=== PATIENT | male | born 1975 | race Caucasian/White ===

== ENCOUNTER 2022-04-08 05:57 | Day surgery (SDC) | payer OTHER ==
[2022-04-07 08:57] VITALS: BMI 27.7
--- NOTE | 2022-04-07 13:28 | P.HPOR ---
History of Present Illness H&P Date: 04/07/22 Chief Complaint: Left middle finger PIP fracture dislocation Subjective: This is a 46 year old male that presents today for follow up evaluation regarding a left middle finger injury that occurred on 03/20/22. He tripped on sidewalk in the hard and thought he jammed his finger. He went to urgent care on 03/22/22 where x-rays were taken showing a left middle finger PIP joint fracture dislocation. He states they attempted reduction without anesthetic but noticed no difference in the appearance of the digit after attempted reduction and states he was then told to schedule further outpatient follow up with a specialist. He was seen last week in office and closed reduction with concentric anatomic reduction was able to be achieved and he was placed in a dorsal blocking splint. He noticed 3 days prior that he attempted to lift a trash can with this finger and felt it pop back out. Physical Examination: LUE: AIN/PIN/Radial/Ulnar/Median motor intact. Radial/Ulnar/Median SILT. 2+/4 Radial/Ulnar pulses palpated. 5/5 APB, 5/5 FDI. Left middle finger held in extension, swelling, TTP and bruising around PIP joint. Imaging: X-Rays of the left middle finger demonstrate a intra-articular middle phalanx fracture involving 30-40% of the volar articular surface with dorsal dislocation present. New post reduction x-rays reveal continued dorsal subluxation/dislocation of the PIP joint, confirming fracture instability. Impression: 1.) Left middle finger intra-articular middle phalanx base fracture with PIP dislocation, unstable. Plan: Diagnosis and treatment options were discussed with the patient. Due to loss off reduction on close radiographic follow up films obtained today indicating joint instability I recommend surgical intervention. We discussed possibility of left middle finger intra-articular middle phalanx base fracture ORIF vs possible hemihamate arthroplasty for his unstable fracture pattern. Risks and benefits of surgery including bleeding, infection, damage to surrounding tissue, need for further surgery, residual numbness, need for therapy post operatively were discussed and the patient wished to go forward with surgery. The patient was agreeable with this plan. Follow up: Surgery -Edd Hopkins DO Orthopedic Hand/Upper Extremity Surgeon Past Medical History Past Medical History: No Reported History History of Any Multi-Drug Resistant Organisms: None Reported Additional Past Surgical History / Comment(s): CYST REMOVED FROM CHEST AREA, COLONOSCOPY Past Anesthesia/Blood Transfusion Reactions: No Reported Reaction Smoking Status: Former smoker - Past Family History Mother Family Medical History: No Reported History Medications and Allergies Home Medications Medication Instructions Recorded Confirmed Type Ibuprofen [Advil] 200 mg PO Q6HR PRN 04/07/22 04/07/22 History Allergies Allergy/AdvReac Type Severity Reaction Status Date / Time No Known Allergies Allergy Verified 04/07/22 08:28 Physical Examination Osteopathic Statement: *. No significant issues noted on an osteopathic structural exam other than those noted in the History and Physical/Consult.
[~2022-04-08 05:57] MED LIST: DEXAMETHASONE SOD PHOSPHATE 4 MG/ML 1 ML VIAL IV ONE; LACTATED RINGERS 1,000 ML IV SCH; MIDAZOLAM 2 MG/2 ML VIAL IV PRN; ONDANSETRON 4 MG/2 ML VIAL IVP ONE; SCOPOLAMINE 1 MG/72 HR PATCH TRANSDERM ONE
[2022-04-08] MEDS ORDERED: LACTATED RINGERS 1,000 ML IV ONE ×3 (06:26→10:15)
[2022-04-08] MEDS ORDERED: ONDANSETRON 4 MG/2 ML VIAL ONE (06:31)
[2022-04-08] MEDS ORDERED: DEXAMETHASONE SOD PHOSPHATE 4 MG/ML 1 ML VIAL IVP ONE (06:35)
[2022-04-08] MEDS ORDERED: SUCCINYLCHOLINE CHLORIDE 200 MG/10 ML VIAL IV ONE (06:55)
[2022-04-08] MEDS ORDERED: PROPOFOL 10 MG/ML 20 ML VIAL IV ONE (06:55)
[2022-04-08] MEDS ORDERED: fentaNYL (PF) 50 MCG/ML 2 ML AMP ONE (06:55)
[2022-04-08] MEDS ORDERED: KETAMINE 10 MG/ML 20 ML VIAL ONE (06:55)
[2022-04-08] MEDS ORDERED: ROCURONIUM 10 MG/ML (5 ML VIAL) IV ONE (06:55)
[2022-04-08] MEDS ORDERED: MIDAZOLAM 2 MG/2 ML VIAL ONE (06:55)
[2022-04-08] MEDS ORDERED: HYDROmorphone (PF) 1 MG/ML ONE (06:55)
[2022-04-08] MEDS ORDERED: LIDOCAINE 2% INJ 20 MG/ML (2 ML VIAL) ONE (06:55)
[2022-04-08 06:59] VITALS: RESP 16
[2022-04-08] MEDS ORDERED: HYDROmorphone 0.5 MG/0.5 ML SYRINGE IVP PRN (07:00)
[2022-04-08] MEDS ORDERED: BUPIVACAINE (PF) 0.5% 30 ML VIAL SQ ONE ×2 (07:22→10:08)
[2022-04-08 10:46] VITALS: TEMP 97
[2022-04-08 11:14] VITALS: BP 120/75; PULSE 81
--- NOTE | 2022-04-08 12:47 | P.OP ---
Date of Procedure: 04/08/22 Preoperative Diagnosis: 1.) Left middle finger intra-articular middle phalanx base fracture with PIP dislocation, unstable, subacute. Postoperative Diagnosis: 1.) Left middle finger intra-articular middle phalanx base fracture with PIP dislocation, unstable, subacute. Procedure(s) Performed: 1.) Left middle finger open reduction of PIP joint dislocation (04190) 2.) Left middle finger middle phalanx Hemihamate arthroplasty for unstable intra-articular middle phalanx base fracture -Corrective osteotomy for bony contouring at the base fo the middle phalanx (96022) -Trosper of bone graft from left Hamate bone (48317) -Open fixation and stabilization of Hamate bone graft to middle phalanx base (86271) Implants: 1.) Arthrex 1.4mm cortical screw x2(12mm) 2.) Arthrex 1.0mm cortical screw x1 (11mm) Anesthesia: GIOA Surgeon: Edd Hopkins Estimated Blood Loss (ml): 30 Pathology: none sent Condition: stable Disposition: PACU Description of Procedure: This is a 46 year old male who sustained a left middle finger comminuted intra-a rticular middle phalanx base fracture/dislocation on 03/20/22 after tripping on [facility]. He initially presented to my office over 1 week out from his injury with his left middle finger PIP joint still dislocated. Closed reduction was performed at that time successfully and splint was placed. He presented for close radiographic follow up 1 week later and was found to have re-dislocated. [facility] of his unstable, subacute left middle finger PIP fracture/dislocation . Risks and benefits of surgery were discussed with the patient including bleeding, damage to surrounding tissue, infection, need for further surgery, stiffness, hardware irritation, need for hand therapy post operatively as well as risks of anesthesia including pulmonary embolism and even and the patient wished to proceed with surgical intervention. The patient was seen in the pre-operative area by myself. Consent and H&P were completed and updated. The correct extremity was marked in the pre- operative area by myself and all other questions were answered. Operative Narrative: The patient was brought to the operating room by the department of anesthesia . They remained on the portable stretcher and a rolling hand table was brought to the side of the operative extremity. Pre-operative time out was performed indicating the correct patient, procedure and laterality. All in the room agreed. Pre-operative antibiotics were given prior to skin incision. The patient was then drifted off to sleep by the department of anesthesia. A nonsterile tourniquet was then applied to the operative extremity and the left upper extremity was then prepped and draped in normal sterile fashion. The operative extremity was the exsanguinated with an esmarch bandage and the tourniquet was inflated to 250mmHg. 15 blade scalpel was utilized to make a trapezoidal incision centered over the PIP joint of the left middle finger with proximal and distal Thom extensions, while placing the horizontal portion of the incision along the mid axial line. The dissection was then taken superficial to the neurovascular bundles and the flap was then elevated in a radial direction. The dissection was then taken down to the flexor tendon sheath. Neurovascular bundles were then elevated off the flexor tendon sheath. A flap of the flexor tendon sheath was then elevated in between A2 and A4 pulleys consisting of the A3 beba in an ulnar to radial based direction. This flap was preserved and was utilized later to protect the graft. The interval between the collateral ligaments and the volar plate were incised with a 15 blade scalpel on both the radial and ulnar aspects. The proximal origin of the volar plate was left intact and the volar plate was then released from its distal insertion in a transverse fashion. A 15 blade scalpel was then used to subperiosteally elevate the origins of the collateral ligaments on both the radial and ulnar sides. The PIP joint was then able to be shotgunned open by hyperextending the PIP joint after venting the proximal portion of the A4 beba. Upon visualization of the base of the middle phalanx, a comminuted impacted intra-articular fracture involving roughly 60% of the volar articular surface was identified. There was extensive impaction and comminution of the articular fragment, this was not amenable to internal fixation. Therefore, decision to proceed with manuel-hamate reconstruction was made. A microsagittal saw was utilized to create the bed for the graft of the middle phalanx and was prepared in a slightly oblique/volar direction, but transverse to the axis of the middle phalanx articular surface. A step cut was created distally in order to hold the graft in place. Ronguer was utilized to remove comminuted and impacted bone fragments. Attention was then drawn to the base of the fourth and fifth metacarpals. 15 blade scalpel was utilized to make a longitudinal incision after needle localization of the fourth and fifth CMC joints. Subcutaneous dissection was performed between the small and ring finger extensor tendons, taking care to protect the sensory branches of the dorsal ulnar sensory nerve. The dorsal capsule was then subperiosteally elevated to reveal the fourth and fifth CMC joint. Previously, taken measurements from the bed defect were then drawn on th e dorsal aspect of the hamate measuring 12 mm in width and 7 mm in the AP direction. Microsagittal saw was then used to make the radial and ulnar cuts approximately 7 mm deep into the articular surface. The transverse portion of the graft was then cut and an additional wedge cut was placed proximally to avoid dislodging the graft upon extraction. The dorsal surfaces of the fourth and fifth metacarpal bases were then removed with microsagittal saw in order to gain appropriate angle for the osteotome to extract the graft. Osteotome was then impacted into the articular surface and the graft was taken without complication. Irrigation was then performed at the fourth and fifth CMC joints and then subcutaneous closure was performed with 4-0 Monocryl suture followed by 4-0 nylon suture. The fourth and fifth CMC joints were then stressed with axial loading and flexion and were deemed to be stable under live fluoroscopy. Attention was then drawn back to the shotgunned PIP joint. The extracted Hamate graft was placed into the newly created bed of the volar surface of the middle phalanx and it was found to be oversized. Several touch-up cuts were then performed until a flush fit was appreciated and the recreation of the articular curvature was achieved. After appropriate sizing, the graft was then held in place by a 0.28 K wire centrally. Recreation of the articular curve was ap preciated on X-ray. Drilling for a 1.4mm lag screw was then performed on both the radial and ulnar sides of the k-wire. Depth gauge was utilized to determine screw lengths. Size 13mm was initially measured. However, after insertion it was felt that ulnar screw size 13 appeared too long on x-ray and it was exchange for a size 12 length. Size 12 was inserted for the radial screw. After screw inserti on was performed. The microsaggital saw was utilized to make an additional touch up cut to contour the volar graft to the volar aspect of the middle phalanx. The central 0.028 K wire was then removed and overdrill was performed and a size 11 1.0mm screw was placed. With 3 screws inserted the joint was then reduced and ranged. 90 degrees of PIP joint flexion was able to be passively obtained and th e graft was stable under live fluoroscopy and appeared to be appropriately sized and contoured. At this time the tourniquet was let down at 2 hours. The finger had immediate perfusion. Bovie cautery was utilized for hemostasis. Irrigation was performed. The previously elevated flexor tendon sheath flap was passed deep to the flexor tendons and elevated volar plate and sutured back down to the ulna r leaflet with 4-0 Monocryl suture creating a smooth gliding surface for the flexor tendons. Volar plate was then repaired and sutured to the intact collateral ligaments on the radial and ulnar portions of the middle phalanx base with 4-0 Monocryl suture. The finger was then ranged and no swan neck deformity was present. 12cc's of 0.5% bupivicaine was utilized to perform a digital block to the left middle finger and a local block around the harvest site. Skin closure was then performed with several interrupted 4-0 nylon sutures. Sterile dressing was applied with adaptic, 4x4s, cast padding and a dorsal blocking splint. The patient was then woken by the department of anesthesia and transferred to PACU in stable condition. Edd Hopkins DO Orthopedic Hand/Upper Extremity Surgeon
== END 2022-04-08 11:35 | disposition home or self-care (01) ==
LOC: OR 05:57
PROVIDERS: ATTEND Orthopaedic Surgery Hand Surgery
DX: S62.623A Displaced fracture of middle phalanx of left middle finger, initial encounter for closed fracture (principal); W01.0XXA Fall on same level from slipping, tripping and stumbling without subsequent striking against object, initial encounter; Y92.480 Sidewalk as the place of occurrence of the external cause; Z87.891 Personal history of nicotine dependence
CPT/HCPCS: 26785; 26567; 26746; 20900; C1713; J2250; J0330; J1100; J0690; J2405; J3010; J1170; J2704; J2001

== ENCOUNTER 2023-01-03 06:45 | Emergency (ER) | payer OTHER ==
[2023-01-03] MEDS ORDERED: ONDANSETRON 4 MG/2 ML VIAL IVP STA (07:03)
[2023-01-03] MEDS ORDERED: SODIUM CHLORIDE 0.9% 2,000 ML IV STA (07:03)
[2023-01-03] MEDS ORDERED: KETOROLAC 15 MG/ML 1 ML VIAL IVP STA ×2 (07:03→07:21)
[2023-01-03] MEDS ORDERED: HYDROmorphone 0.5 MG/0.5 ML SYRINGE IVP STA ×2 (07:04→07:21)
[2023-01-03 07:28] LABS: Basophils # (A) 0.1 k/uL (0-0.2); Basophils % (A) 0 %; Eosinophils # (A) 0.3 k/uL (0-0.7); Eosinophils % (A) 2 %; HCT 50.4 % (39.0-53.0); HGB 18.2 gm/dL (13.0-17.5); Lymphocytes # (A) 4.1 k/uL (1.0-4.8); Lymphocytes % (A) 27 %; MCH 34.2 pg (25.0-35.0); Mean Platelet Volume 8.5; Monocytes # (A) 0.6 k/uL (0-1.0); Monocytes % (A) 4 %; Neutrophils # (A) 9.6 k/uL (1.3-7.7); Neutrophils % (A) 65 %; Platelet Count 327 k/uL (150-450); RBC 5.31 m/uL (4.30-5.90); RDW 14.1 % (11.5-15.5); WBC 14.8 k/uL (3.8-10.6)
--- NOTE | 2023-01-03 07:38 | ED ---
General Adult HPI - General Chief complaint: Back Pain/Injury Stated complaint: Urinating blood, ABD Pain Time Seen by Provider: 01/03/23 06:57 Source: patient, RN notes reviewed Mode of arrival: ambulatory Limitations: no limitations - History of Present Illness Initial comments: This a 47-year-old male presents emergency department went right flank pain. Patient states pain was sudden onset. Patient states she acute urinating blood. Patient is very nauseous had several episodes of vomiting. He states nothing makes the pain feel better or worse. Denies any prior abdominal surgeries no prior history kidney stones. Patient has NO KNOWN DRUG ALLERGIES. Denies any fevers. Patient has no complaints chest pain, upper back pain. - Related Data Home Medications Medication Instructions Recorded Confirmed Ibuprofen [Advil] 200 mg PO Q6HR PRN 04/07/22 04/07/22 Previous Rx's Medication Instructions Recorded HYDROcodone/APAP 5-325MG [[place] 1 tab PO Q6HR PRN 3 Days #18 tab 04/08/22 5-325] HYDROcodone/APAP 7.5-325MG [[place] 1 tab PO Q6HR PRN 3 Days #12 tab 01/03/23 7.5-325] Ketorolac [Toradol] 10 mg PO Q8HR #15 tab 01/03/23 Ondansetron Odt [Zofran Odt] 4 mg PO Q8HR PRN #10 tab 01/03/23 Sulfamethox-Tmp 800-160Mg [Bactrim 1 each PO Q12HR #14 tab 01/03/23 Ds] Tamsulosin [Flomax] 0.4 mg PO DAILY #7 cap 01/03/23 Allergies Allergy/AdvReac Type Severity Reaction Status Date / Time No Known Allergies Allergy Verified 01/03/23 06:57 Review of Systems ROS Statement: Those systems with pertinent positive or pertinent negative responses have been documented in the HPI. ROS Other: All systems not noted in ROS Statement are negative. Past Medical History Past Medical History: No Reported History History of Any Multi-Drug Resistant Organisms: None Reported Additional Past Surgical History / Comment(s): CYST REMOVED FROM CHEST AREA, COLONOSCOPY Past Anesthesia/Blood Transfusion Reactions: No Reported Reaction Past Psychological History: No Psychological Hx Reported Smoking Status: Former smoker Past Alcohol Use History: Daily Past Drug Use History: Marijuana - Past Family History Mother Family Medical History: No Reported History General Exam Limitations: no limitations General appearance: alert, in no apparent distress Head exam: Present: atraumatic, normocephalic, normal inspection Eye exam: Present: normal appearance, PERRL, EOMI. Absent: scleral icterus, conjunctival injection, periorbital swelling ENT exam: Present: normal exam, normal oropharynx, mucous membranes moist Neck exam: Present: normal inspection, full ROM. Absent: tenderness, meningismus, lymphadenopathy Respiratory exam: Present: normal lung sounds bilaterally. Absent: respiratory distress, wheezes, rales, rhonchi, stridor Cardiovascular Exam: Present: regular rate, normal rhythm, normal heart sounds. Absent: systolic murmur, diastolic murmur, rubs, gallop, clicks GI/Abdominal exam: Present: soft, tenderness, normal bowel sounds. Absent: distended, guarding, rebound, rigid Back exam: Present: CVA tenderness (R). Absent: CVA tenderness (L) Neurological exam: Present: alert, oriented X3 Skin exam: Present: warm, dry, intact, normal color. Absent: rash Course Vital Signs 01/03/23 01/03/23 01/03/23 06:52 06:57 07:42 Temperature 97.9 F Pulse Rate 63 64 50 L Respiratory 18 16 20 Rate Blood Pressure 162/79 165/100 152/95 O2 Sat by Pulse 99 100 100 Oximetry 01/03/23 01/03/23 01/03/23 08:56 10:00 11:37 Temperature 98 F Pulse Rate 65 57 L 60 Respiratory 22 24 18 Rate Blood Pressure 169/99 153/103 152/103 O2 Sat by Pulse 99 98 100 Oximetry Medical Decision Making - Medical Decision Making Was pt. sent in by a medical professional or institution (, PA, MACHINERY ERECTOR, urgent care, hospital, or jail...) When possible be specific @ -No Did you speak to anyone other than the patient for history (EMS, parent, family, police, friend...)? What history was obtained from this source @ -No Did you review nursing and triage notes (agree or disagree)? Why? @ -I reviewed and agree with nursing and triage notes Were old charts reviewed (outside hosp., previous admission, EMS record, old EKG, old radiological studies, urgent care reports/EKG's, jail records)? Report findings @ -No old charts were reviewed Differential Diagnosis (chest pain, altered mental status, abdominal pain women, abdominal pain men, vaginal bleeding, weakness, fever, dyspnea, syncope, headache, dizziness, GI bleed, back pain, seizure, CVA, palpatations, mental health, musculoskeletal)? @ -Differential Back Pain: Strain, zoster, cauda equina syndrome, epidural abscess, vertebral osteomyelitis, discitis, fracture, subluxation, disc herniation, DJD, spinal stenosis, dissection, AAA, pancreatitis, peptic ulcer disease, pyelonephritis, kidney stone, this is not meant to be an all-inclusive list. EKG interpreted by me (3pts min.). @ -None X-rays interpreted by me (1pt min.). @ -None done CT interpreted by me (1pt min.). @ -CT shows evidence of hydroureter, hydronephrosis on the right U/S interpreted by me (1pt. min.). @ -None done What testing was considered but not performed or refused? (CT, X-rays, U/S, labs)? Why? @ -None What meds were considered but not given or refused? Why? @ -None Did you discuss the management of the patient with other professionals (professionals i.e. , PA, MACHINERY ERECTOR, lab, RT, psych nurse, drug abuse social worker, mattress finisher, teacher, benefits officer, continuous pillowcase cutter)? Give summary @ -No Was smoking cessation discussed for >3mins.? @ -No Was critical care preformed (if so, how long)? @ -No Were there social determinants of health that impacted care today? How? (Homel essness, low income, unemployed, alcoholism, drug addiction, transportation, low edu. Level, literacy, decrease access to med. care, senior care, rehab)? @ -No Was there de-escalation of care discussed even if they declined (Discuss DNR or withdrawal of care, Hospice)? DNR status @ -No What co-morbidities impacted this encounter? (DM, HTN, Smoking, COPD, CAD, Cancer, CVA, ARF, Chemo, Hep., AIDS, mental health diagnosis, sleep apnea, morbid obesity)? @ -None Was patient admitted / discharged? Hospital course, mention meds given and route, prescriptions, significant lab abnormalities, going to OR and other pertinent info. @ -Discharge patient feels improved dietary pain is, IV fluids and antiemetics. CT shows evidence of hydronephrosis on the right consistent with kidney stone. Patient did have moderate amount of bacteria patient was given antibiotics patient pain is improved be discharged with oral pain medical. Undiagnosed new problem with uncertain prognosis? @ -No Drug Therapy requiring intensive monitoring for toxicity (Heparin, Nitro, Insulin, Cardizem)? @ -No Were any procedures done? @ -No Diagnosis/symptom? @ -Right flank pain, kidney stone Acute, or Chronic, or Acute on Chronic? @ -Acute Uncomplicated (without systemic symptoms) or Complicated (systemic symptoms)? @ -Uncomplicated Side effects of treatment? @ -No Exacerbation, Progression, or Severe Exacerbation? @ -No Poses a threat to life or bodily function? How? (Chest pain, [place], [place], pneumonia, PE, COPD, DKA, ARF, appy, cholecystitis, CVA, Diverticulitis, Homicidal, Suicidal, threat to staff... and all critical care pts) @ -No - Lab Data Result diagrams: 01/03/23 07:12 01/03/23 07:12 Lab Results 01/03/23 01/03/23 01/03/23 Range/Units 07:12 07:12 08:56 WBC 14.8 H (3.8-10.6) k/uL RBC 5.31 (4.30-5.90) m/uL Hgb 18.2 H (13.0-17.5) gm/dL Hct 50.4 (39.0-53.0) % MCV 95.0 (80.0-100.0) fL MCH 34.2 (25.0-35.0) pg MCHC 36.0 (31.0-37.0) g/dL RDW 14.1 (11.5-15.5) % Plt Count 327 (150-450) k/uL MPV 8.5 Neutrophils % 65 % Lymphocytes % 27 % Monocytes % 4 % Eosinophils % 2 % Basophils % 0 % Neutrophils # 9.6 H (1.3-7.7) k/uL Lymphocytes # 4.1 (1.0-4.8) k/uL Monocytes # 0.6 (0-1.0) k/uL Eosinophils # 0.3 (0-0.7) k/uL Basophils # 0.1 (0-0.2) k/uL Sodium 138 (137-145) mmol/L Potassium 3.8 (3.5-5.1) mmol/L Chloride 102 (98-107) mmol/L Carbon Dioxide 22 (22-30) mmol/L Anion Gap 14 mmol/L BUN 13 (9-20) mg/dL Creatinine 1.06 (0.66-1.25) mg/dL Est GFR (CKD-EPI)AfAm >90 (>60 ml/min/1.73 sqM) Est GFR (CKD-EPI)NonAf 83 (>60 ml/min/1.73 sqM) Glucose 172 H (74-99) mg/dL Calcium 9.8 (8.4-10.2) mg/dL Total Bilirubin 1.2 (0.2-1.3) mg/dL AST 68 H (17-59) U/L ALT 57 H (4-49) U/L Alkaline Phosphatase 157 H (38-126) U/L Total Protein 7.8 (6.3-8.2) g/dL Albumin 4.4 (3.5-5.0) g/dL Lipase 63 (23-300) U/L Urine Color Dark Brown Urine Appearance Turbid (Clear) Urine pH 5.5 (5.0-8.0) Ur Specific [place] 1.034 (1.001-1.035) Urine Protein 2+ H (Negative) Urine Glucose (UA) Trace H (Negative) Urine Ketones 3+ H (Negative) Urine Blood Large H (Negative) Urine Nitrite Negative (Negative) Urine Bilirubin Negative (Negative) Urine Urobilinogen 2.0 (<2.0) mg/dL Ur Leukocyte Esterase Moderate H (Negative) Urine RBC 151 H (0-5) /hpf Urine WBC 85 H (0-5) /hpf Ur Squamous Epith Cells 2 (0-4) /hpf Calcium Oxalate Crystal Occasional H (None) /hpf Urine Bacteria Rare H (None) /hpf Urine Mucus Many H (None) /hpf Disposition Clinical Impression: Kidney stone on right side Disposition: HOME SELF-CARE Condition: Stable Instructions (If sedation given, give patient instructions): Kidney Stones (ED) Additional Instructions: Please return to the Emergency Department if symptoms worsen or any other concerns. Prescriptions: Sulfamethox-Tmp 800-160Mg [Bactrim Ds] 1 each PO Q12HR #14 tab Tamsulosin [Flomax] 0.4 mg PO DAILY #7 cap HYDROcodone/APAP 7.5-325MG [[place] 7.5-325] 1 tab PO Q6HR PRN 3 Days #12 tab PRN Reason: pain Ketorolac [Toradol] 10 mg PO Q8HR #15 tab Ondansetron Odt [Zofran Odt] 4 mg PO Q8HR PRN #10 tab PRN Reason: Nausea Is patient prescribed a controlled substance at d/c from ED?: Yes When asked, does pt state using other controlled substances?: No If prescribed controlled substance>3 days was MAPS reviewed?: Prescribed <3 Days If opioid is for acute pain is fill amount 7 days or less?: Yes If Rx opioid, was Start Talking consent form obtained?: Yes Referrals: None,Stated [Primary Care Provider] - 1-2 days Colton Diaz MD [STAFF PHYSICIAN] - 1-2 days Time of Disposition: 11:12
[2023-01-03 07:40] LABS: ALT 57 U/L (4-49); AST 68 U/L (17-59); African American GFR (CKD) >90 (>60 ml/min/1.73 sqM); Albumin 4.4 g/dL (3.5-5.0); Alkaline Phosphatase 157 U/L (38-126); Anion Gap 14 mmol/L; Blood Urea Nitrogen 13 mg/dL (9-20); Calcium 9.8 mg/dL (8.4-10.2); Carbon Dioxide 22 mmol/L (22-30); Chloride 102 mmol/L (98-107); Glucose 172 mg/dL (74-99); Lipase 63 U/L (23-300); Non-African American GFR(CKD) 83 (>60 ml/min/1.73 sqM); Sodium 138 mmol/L (137-145); Total Bilirubin 1.2 mg/dL (0.2-1.3); Total Protein 7.8 g/dL (6.3-8.2)
[2023-01-03 08:00] LABS: Potassium 3.8 mmol/L (3.5-5.1)
--- NOTE | 2023-01-03 08:11 | CT ---
EXAMINATION TYPE: CT abdomen pelvis wo con CT DLP: 734.9 mGycm, Automated exposure control for dose reduction was used. DATE OF EXAM: 01/03/2023 8:02 AM COMPARISON: None CLINICAL INDICATION:Male, 47 years old with history of flank pain; Flank pain TECHNIQUE: Axial CT of the abdomen and pelvis. Sagittal and coronal reformats were created on a [employer] workstation. Contrast used: mL of , (none if empty) Oral contrast used: without Oral Contrast (none if empty) FINDINGS: LOWER CHEST: Unremarkable ABDOMEN LIVER: Diffusely hypoattenuating parenchyma. GALLBLADDER AND BILE DUCTS: Unremarkable. PANCREAS: Unremarkable. SPLEEN: Unremarkable. ADRENAL GLANDS: Unremarkable. KIDNEYS AND URETERS: Mild right hydronephrosis without evidence for obstructing calculus. No left ysabel al calculi. No right renal calculi. PELVIS BLADDER: Unremarkable REPRODUCTIVE: Unremarkable. ABDOMEN & PELVIS STOMACH AND BOWEL: Small hiatal hernia, duodenum is unremarkable No evidence of bowel obstruction. Th e appendix is normal. PERITONEUM/RETROPERITONEUM: No evidence of pneumoperitoneum or free fluid. VASCULATURE: No evidence of aortic aneurysm. MUSCULOSKELETAL: No acute osseous abnormalities LYMPH NODES: No gross evidence for lymphadenopathy. SOFT TISSUE/ABDOMINAL WALL: Fat-containing buccal hernia. IMPRESSION: 1. Mild right hydronephrosis without evidence for obstructing calculus. Correlate for recently passe d stone. No nephrolithiasis visualized. 2. Small hiatal hernia.
[2023-01-03 09:33] LABS: Appearance,Urine Turbid (Clear); Bacteria,Urine Rare /hpf; Bilirubin,Urine Negative (Negative); Blood,Urine Large (Negative); Calcium Oxalate Crystals,Urine Occasional /hpf; Color,Urine Dark Brown; Glucose,Urine (UA) Trace (Negative); Ketones,Urine 3+ (Negative); Leukocyte Esterase,Urine Moderate (Negative); Mucus,Urine Many /hpf; Nitrite,Urine Negative (Negative); PH, Urine 5.5 (5.0-8.0); Protein,Urine 2+ (Negative); RBC,Urine 151 /hpf (0-5); Specific Gravity,Urine 1.034 (1.001-1.035); Squamous Epithelial Cell,Urine 2 /hpf (0-4); WBC,Urine 85 /hpf (0-5)
[2023-01-03] MEDS ORDERED: METOCLOPRAMIDE 5 MG/ML 2 ML VIAL IVP STA (10:02)
[2023-01-03] MEDS ORDERED: HYDROmorphone 1 MG/ML 1 ML SYRINGE IVP STA (10:02)
[2023-01-03] MEDS ORDERED: TAMSULOSIN 0.4 MG CAP.ER.24H PO STA (10:06)
[2023-01-03 11:38] VITALS: BP 152/103; PULSE 60; RESP 18; TEMP 98
== END 2023-01-03 11:38 | disposition home or self-care (01) ==
LOC: EC 06:45
DX: N13.2 Hydronephrosis with renal and ureteral calculous obstruction (principal); Z87.891 Personal history of nicotine dependence; F12.90 Cannabis use, unspecified, uncomplicated
CPT/HCPCS: 51798; 36415; 80053; 83690; 85025; 81001; 87040; 87086; 74176; 99285; 96365; 96375 ×3; 96376 ×2; 96361 ×2; J2765; J2405; J0696; J1170 ×2; J1885

== ENCOUNTER 2023-03-03 14:40 | Observation (INO) | payer OTHER ==
[2023-03-03] MEDS ORDERED: PANTOPRAZOLE 40 MG/10 ML VIAL IVP STA (15:30)
[2023-03-03] MEDS ORDERED: SODIUM CHLORIDE 0.9% 500 ML 500 ML IV STA (15:30)
[2023-03-03] MEDS ORDERED: LORazepam 2 MG/ML INJ IV STA (15:30)
[2023-03-03] MEDS ORDERED: ONDANSETRON 4 MG/2 ML VIAL IVP STA (15:30)
[2023-03-03] MEDS ORDERED: SODIUM CHLORIDE 0.9% 1,000 ML IV STA (15:30)
--- NOTE | 2023-03-03 15:31 | ED ---
Alcohol HPI - General Chief Complaint: Alcohol Stated Complaint: detox-ETOH Time Seen by Provider: 03/03/23 15:11 Source: patient, RN notes reviewed, old records reviewed Mode of arrival: ambulatory Limitations: no limitations - History of Present Illness Initial Comments: This is a 47-year-old male to the emergency department for evaluation. Patient comes in mild distress significant vomiting nausea vomiting abdominal pain occasional. Patient feels weak at times a headed and dizzy special with position change. Patient is feeling depressed, but not currently homicidal or suicidal. 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 ROS Other: All systems not noted in ROS Statement are negative. Past Medical History Past Medical History: No Reported History History of Any Multi-Drug Resistant Organisms: None Reported Additional Past Surgical History / Comment(s): CYST REMOVED FROM CHEST AREA, COLONOSCOPY Past Anesthesia/Blood Transfusion Reactions: No Reported Reaction Past Psychological History: No Psychological Hx Reported Smoking Status: Former smoker Past Alcohol Use History: Abuse, Daily, Heavy Past Drug Use History: Marijuana - Past Family History Mother Family Medical History: No Reported History General Exam Limitations: no limitations General appearance: alert, in no apparent distress Head exam: Present: atraumatic, normocephalic, normal inspection Eye exam: Present: normal appearance, PERRL, EOMI. Absent: scleral icterus, conjunctival injection, periorbital swelling ENT exam: Present: normal exam, mucous membranes moist Neck exam: Present: normal inspection. Absent: tenderness, meningismus, lymphadenopathy Respiratory exam: Present: normal lung sounds bilaterally. Absent: respiratory distress, wheezes, rales, rhonchi, stridor Cardiovascular Exam: Present: regular rate, normal rhythm, normal heart sounds. Absent: systolic murmur, diastolic murmur, rubs, gallop, clicks GI/Abdominal exam: Present: soft, normal bowel sounds. Absent: distended, tenderness, guarding, rebound, rigid Extremities exam: Present: normal inspection, full ROM, normal capillary refill. Absent: tenderness, pedal edema, joint swelling, calf tenderness Back exam: Present: normal inspection Neurological exam: Present: alert, oriented X3, CN II-XII intact Psychiatric exam: Present: normal affect, normal mood Skin exam: Present: warm, dry, intact, normal color. Absent: rash Course Vital Signs 03/03/23 03/03/23 03/03/23 14:53 18:58 21:22 Temperature 97.6 F 98.8 F Pulse Rate 88 108 H Respiratory 16 16 Rate Blood Pressure 118/81 143/91 150/98 O2 Sat by Pulse 97 98 Oximetry - Reevaluation(s) Reevaluation #1: 03/03/23 15:59 Medical record is reviewed Reevaluation #2: 03/03/23 15:59 Patient symptoms unchanged Although improving Reevaluation #3: 03/03/23 15:59 Patient informed results and questions answered Reevaluation #4: 03/03/23 15:59 Was pt. sent in by a medical professional or institution (, PA, INSULATION BLANKET MAKER, urgent care, hospital, or long term...) When possible be specific @ -no Did you speak to anyone other than the patient for history (EMS, parent, family, police, friend...)? What history was obtained from this source @ -no Did you review nursing and triage notes (agree or disagree)? Why? @ -agree Are old charts reviewed (outside hosp., previous admission, EMS record, old EKG, old radiological studies, urgent care reports/EKG's, long term records)? Report findings @ -yes Differential Diagnosis (chest pain, altered mental status, abdominal pain women, abdominal pain men, vaginal bleeding, weakness, fever, dyspnea, syncope, headache, dizziness, GI bleed, back pain, seizure, CVA, palpatations, mental health, musculoskeletal)? @ -prior EKG interpreted by me (3pts min.). @ -no X-rays interpreted by me (1pt min.). @ -no CT interpreted by me (1pt min.). @ -no U/S interpreted by me (1pt. min.). @ -no What testing was considered but not performed or refused? (CT, X-rays, U/S, labs)? Why? @ -none What meds were considered but not given or refused? Why? @ -none Did you discuss the management of the patient with other professionals (professionals i.e. , PA, INSULATION BLANKET MAKER, lab, RT, psych nurse, social research assistant, supervisor dimension warehouse, teacher, adult parole officer, case assistant)? Give summary @ -no Was smoking cessation discussed for >3mins.? @ -no Was critical care preformed (if so, how long)? @ -no Were there social determinants of health that impacted care today? How? (Homelessness, low income, unemployed, alcoholism, drug addiction, transportation, low edu. Level, literacy, decrease access to med. care, long term, rehab)? @ -none Was there de-escalation of care discussed even if they declined (Discuss DNR or withdrawal of care, Hospice)? DNR status @ -no What co-morbidities impacted this encounter? (DM, HTN, Smoking, COPD, CAD, Cancer, CVA, ARF, Chemo, Hep., AIDS, mental health diagnosis, sleep apnea, morb id obesity)? @ -none Was patient admitted / discharged? Hospital course, mention meds given and rou te, prescriptions, significant lab abnormalities, going to OR and other pertinent info. @ - 47 male to the emergency department today for evaluation. Patient is significantly intoxicated who presents for alcohol withdrawal syndrome not feeling well and continues to feel psychiatric transfer. Patient will be admitted for alcohol detoxification and withdrawal symptoms Admitted Undiagnosed new problem with uncertain prognosis? @ -no Drug Therapy requiring intensive monitoring for toxicity (Heparin, Nitro, Insulin, Cardizem)? @ -no Were any procedures done? @ -no Diagnosis/symptom? @ -Alcohol intoxication pending withdrawal Acute, or Chronic, or Acute on Chronic? @ -Acute Uncomplicated (without systemic symptoms) or Complicated (systemic symptoms)? @ -Complicated Side effects of treatment? @ -no Exacerbation, Progression, or Severe Exacerbation? @ -exacerbation Poses a threat to life or bodily function? How? (Chest pain, USA, CT, pneumonia, PE, COPD, DKA, ARF, appy, cholecystitis, CVA, Diverticulitis, Homicidal, Suicidal, threat to staff... and all critical care pts) @ -yes withdrawal can be threat to life - Consultations Consultation #1: spoke w sound for admission they agree Medical Decision Making - Medical Decision Making 47 male to the emergency department today for evaluation. Patient is significantly intoxicated who presents for alcohol withdrawal syndrome not feeling well and continues to feel psychiatric transfer. Patient will be admitted for alcohol detoxification and withdrawal symptoms - Lab Data Result diagrams: 03/05/23 06:51 03/05/23 07:11 Lab Results 03/03/23 03/03/23 Range/Units 16:11 16:11 WBC 9.1 (3.8-10.6) k/uL RBC 4.97 (4.30-5.90) m/uL Hgb 16.8 (13.0-17.5) gm/dL Hct 49.7 (39.0-53.0) % MCV 99.9 (80.0-100.0) fL MCH 33.9 (25.0-35.0) pg MCHC 33.9 (31.0-37.0) g/dL RDW 13.1 (11.5-15.5) % Plt Count 241 (150-450) k/uL MPV 8.2 Neutrophils % 73 % Lymphocytes % 20 % Monocytes % 3 % Eosinophils % 2 % Basophils % 0 % Neutrophils # 6.6 (1.3-7.7) k/uL Lymphocytes # 1.8 (1.0-4.8) k/uL Monocytes # 0.3 (0-1.0) k/uL Eosinophils # 0.2 (0-0.7) k/uL Basophils # 0.0 (0-0.2) k/uL Sodium 139 (137-145) mmol/L Potassium 3.7 (3.5-5.1) mmol/L Chloride 95 L (98-107) mmol/L Carbon Dioxide 27 (22-30) mmol/L Anion Gap 17 mmol/L BUN 15 (9-20) mg/dL Creatinine 1.09 (0.66-1.25) mg/dL Est GFR (CKD-EPI)AfAm >90 (>60 ml/min/1.73 sqM) Est GFR (CKD-EPI)NonAf 80 (>60 ml/min/1.73 sqM) Glucose 99 (74-99) mg/dL Calcium 9.2 (8.4-10.2) mg/dL Phosphorus 4.2 (2.5-4.5) mg/dL Magnesium 1.9 (1.6-2.3) mg/dL Total Bilirubin 0.7 (0.2-1.3) mg/dL AST 82 H (17-59) U/L ALT 68 H (4-49) U/L Alkaline Phosphatase 127 H (38-126) U/L Total Protein 7.8 (6.3-8.2) g/dL Albumin 4.5 (3.5-5.0) g/dL Lipase 108 (23-300) U/L Serum Alcohol 213 H* mg/dL Disposition Clinical Impression: Alcoholic intoxication, Alcohol withdrawal syndrome, Alcohol withdrawal delirium Disposition: ADMITTED IP TO THIS HOSP Condition: Stable Is patient prescribed a controlled substance at d/c from ED?: No Time of Disposition: 18:00
[2023-03-03 16:22] LABS: Basophils % (A) 0 %; Eosinophils # (A) 0.2 k/uL (0-0.7); Eosinophils % (A) 2 %; HCT 49.7 % (39.0-53.0); HGB 16.8 gm/dL (13.0-17.5); Lymphocytes # (A) 1.8 k/uL (1.0-4.8); Lymphocytes % (A) 20 %; MCH 33.9 pg (25.0-35.0); MCHC 33.9 g/dL (31.0-37.0); MCV 99.9 fL (80.0-100.0); Mean Platelet Volume 8.2; Monocytes # (A) 0.3 k/uL (0-1.0); Monocytes % (A) 3 %; Neutrophils # (A) 6.6 k/uL (1.3-7.7); Neutrophils % (A) 73 %; Platelet Count 241 k/uL (150-450); RBC 4.97 m/uL (4.30-5.90); RDW 13.1 % (11.5-15.5); WBC 9.1 k/uL (3.8-10.6)
[2023-03-03 16:36] LABS: ALT 68 U/L (4-49); AST 82 U/L (17-59); African American GFR (CKD) >90 (>60 ml/min/1.73 sqM); Albumin 4.5 g/dL (3.5-5.0); Alkaline Phosphatase 127 U/L (38-126); Anion Gap 17 mmol/L; Blood Urea Nitrogen 15 mg/dL (9-20); Calcium 9.2 mg/dL (8.4-10.2); Carbon Dioxide 27 mmol/L (22-30); Chloride 95 mmol/L (98-107); Glucose 99 mg/dL (74-99); Lipase 108 U/L (23-300); Magnesium 1.9 mg/dL (1.6-2.3); Non-African American GFR(CKD) 80 (>60 ml/min/1.73 sqM); Phosphorus 4.2 mg/dL (2.5-4.5); Potassium 3.7 mmol/L (3.5-5.1); Sodium 139 mmol/L (137-145); Total Bilirubin 0.7 mg/dL (0.2-1.3); Total Protein 7.8 g/dL (6.3-8.2)
[2023-03-03 16:39] LABS: Alcohol 213 mg/dL
[2023-03-03] MEDS ORDERED: ONDANSETRON 4 MG/2 ML VIAL IVP PRN (17:54)
[2023-03-03] MEDS ORDERED: LORazepam 2 MG/ML INJ IV PRN ×2 (17:54)
[2023-03-03] MEDS ORDERED: THIAMINE 100 MG/ML 2 ML VIAL IM STA (17:54)
[2023-03-03] MEDS ORDERED: NALOXONE 0.4 MG/ML 1 ML VIAL IV PRN (17:54)
[2023-03-03] MEDS ORDERED: MORPHINE SULFATE 4 MG/ML SYRINGE IV PRN (17:54)
[2023-03-03] MEDS ORDERED: PROCHLORPERAZINE INJ 10 MG/2 ML VIAL IVP STA (17:54)
--- NOTE | 2023-03-04 05:31 | P.HPIM ---
History of Present Illness H&P Date: 03/04/23 Chief Complaint: Alcohol withdrawal 47-year-old male denies any significant past medical history Patient admits to heavy alcohol consumption. He's been trying to quit his last drink was early Monday morning, he started noticing some shakes and decided to come in seeking help for detox. He's been through detox in the past denies any history of withdrawal seizures he does report history of severe withdrawal symptoms and hallucinations in the past he has relapsed few months ago and is hoping that she can detox this time again. He currently denies any hallucinations denies any suicidal or homicidal ideation denies any chest pain or trouble breathing denies any nausea vomiting denies any GI bleeding He denies any tobacco smoking admits to smoking marijuana and heavy alcohol review of systems Pertinent positives as noted in HPI. All other systems were reviewed and are negative on exam Constitutional: No acute distress, conversant, pleasant Eyes: Anicteric sclerae, moist conjunctiva, Pupils equal round reactive to light ENMT: NC/AT Oropharynx clear, no erythema, or exudates Lungs: Clear to auscultation Clear to percussion Normal respiratory effort, no accessory muscle use Cardiovascular: Heart regular in rate and rhythm, No murmurs, gallops, or rubs No peripheral edema Abdominal: Soft Nontender, no guarding, rebound or rigidity Abdomen moving with respiration Normoactive bowel sounds No hepatomegaly, No splenomegaly No palpable mass No abdominal wall hernia noted Extremities: No digital cyanosis No clubbing Pedal pulses intact and symmetrical Radial pulses intact and symmetrical No calf tenderness Psychiatric: Alert and oriented to person, place and time Appropriate affect fair judgement Neuro Muscles Strength 5/5 in all 4 extremities Sensation to light touch grossly present throughout Cranial nerves II-XII grossly intact Lymphatics: no palpable cervical or supraclavicular lymph nodes Past Medical History Past Medical History: No Reported History History of Any Multi-Drug Resistant Organisms: None Reported Additional Past Surgical History / Comment(s): CYST REMOVED FROM CHEST AREA, COLONOSCOPY Past Anesthesia/Blood Transfusion Reactions: No Reported Reaction Past Psychological History: No Psychological Hx Reported Smoking Status: Former smoker Past Alcohol Use History: Abuse, Daily, Heavy Additional Past Alcohol Use History / Comment(s): STARTED SMOKING AT AGE 15 QUIT 12/2021 QUIT DRINKING FEB 2021, started again recently, fifth of vodka daily Past Drug Use History: Marijuana - Past Family History Mother Family Medical History: No Reported History Medications and Allergies Home Medications Medication Instructions Recorded Confirmed Type No Known Home Medications 03/03/23 03/03/23 History Allergies Allergy/AdvReac Type Severity Reaction Status Date / Time No Known Allergies Allergy Verified 03/03/23 19:47 Physical Exam Vitals: Vital Signs Temp Pulse Pulse Resp BP BP Pulse Ox 03/04/23 01:28 99.2 F 106 H 18 128/85 95 03/03/23 22:30 18 03/03/23 22:24 98.3 F 109 H 17 143/86 98 03/03/23 21:22 98.8 F 108 H 16 150/98 98 03/03/23 18:58 143/91 03/03/23 14:53 97.6 F 88 16 118/81 97 Intake and Output 03/03/23 03/03/23 03/04/23 14:59 22:59 06:59 Other: Weight 97.522 kg 97.522 kg Results CBC & Chem 7: 03/03/23 16:11 03/03/23 16:11 Labs: Abnormal Lab Results - Last 24 Hours (Table) 03/03/23 Range/Units 16:11 Chloride 95 L (98-107) mmol/L AST 82 H (17-59) U/L ALT 68 H (4-49) U/L Alkaline Phosphatase 127 H (38-126) U/L Serum Alcohol 213 H* mg/dL Thrombosis Risk Factor Assmnt - Choose All That Apply Any of the Below Risk Factors Present?: Yes Each Factor Represents 1 point: Age 41-60 years, Obesity (BMI >25) Other Risk Factors: No Other congenital or acquired thrombophilia - If yes, enter type in comment: No Thrombosis Risk Factor Assessment Total Risk Factor Score: 2 Thrombosis Risk Factor Assessment Level: Low Risk Assessment and Plan Assessment: 47-year-old male with alcohol abuse coming in seeking help to detox from alcohol I discussed the case with the ED doctor and accepted the admission for alcohol withdrawal with anticipated length of stay more than 2 midnights Alcohol abuse with alcohol withdrawal syndrome Fall precautions Seizure precautions Benzos per CIWA scale Thiamine daily IV fluid hydration normal saline long term care social worker consult Patient trying to quit alcohol Mild transaminitis most likely secondary to alcohol abuse History 82 ALT 68 Continue to monitor Blood work showing white count 9.1 hemoglobin 16.8 BUN 15 creatinine 1.09 Sodium 139 potassium 3.7 DVT prophylaxis heparin subcu 3 times a day Full code GI prophylaxis Protonix by mouth daily 40 mg
[2023-03-04 07:58] LABS: Basophils % (A) 0 %; Eosinophils % (A) 1 %; HCT 42.5 % (39.0-53.0); HGB 14.4 gm/dL (13.0-17.5); Lymphocytes # (A) 2.8 k/uL (1.0-4.8); Lymphocytes % (A) 30 %; MCH 33.9 pg (25.0-35.0); MCHC 33.9 g/dL (31.0-37.0); MCV 100.1 fL (80.0-100.0); Mean Platelet Volume 8.7; Monocytes # (A) 0.7 k/uL (0-1.0); Monocytes % (A) 7 %; Neutrophils # (A) 5.6 k/uL (1.3-7.7); Neutrophils % (A) 60 %; Platelet Count 225 k/uL (150-450); RBC 4.25 m/uL (4.30-5.90); RDW 13.5 % (11.5-15.5); WBC 9.3 k/uL (3.8-10.6)
[2023-03-04 08:31] LABS: ALT 55 U/L (4-49); AST 57 U/L (17-59); African American GFR (CKD) >90 (>60 ml/min/1.73 sqM); Albumin 3.6 g/dL (3.5-5.0); Albumin/Globulin Ratio 1.2; Alkaline Phosphatase 95 U/L (38-126); Anion Gap 9 mmol/L; Blood Urea Nitrogen 11 mg/dL (9-20); Calcium 8.6 mg/dL (8.4-10.2); Carbon Dioxide 24 mmol/L (22-30); Chloride 100 mmol/L (98-107); Globulin 2.9 g/dL; Glucose 83 mg/dL (74-99); Magnesium 1.7 mg/dL (1.6-2.3); Non-African American GFR(CKD) >90 (>60 ml/min/1.73 sqM); Phosphorus 3.3 mg/dL (2.5-4.5); Potassium 3.9 mmol/L (3.5-5.1); Sodium 133 mmol/L (137-145); Total Bilirubin 1.1 mg/dL (0.2-1.3); Total Protein 6.5 g/dL (6.3-8.2)
[2023-03-04] MEDS: THIAMINE 100 MG TAB PO SCH (08:53)
[2023-03-04] MEDS: FOLIC ACID 1 MG TAB PO SCH (08:53)
[2023-03-04] MEDS: PANTOPRAZOLE 40 MG/10 ML VIAL IV SCH (08:53)
[2023-03-04] MEDS: MULTIVITAMINS, THERA 1 EACH TAB PO SCH (08:53)
--- NOTE | 2023-03-04 13:20 | P.PN ---
Subjective Progress Note Date: 03/04/23 Hospital course: Patient is a very pleasant 47-year-old male with a past medical history of chronic alcohol abuse. he presented to the hospital on 03/03/23seeing assistance with medical detox.he underwent full evaluation in the emergency department. Labs were completed and reviewed. CBC and BMP were unremarkable. liver profile showing transaminitis with AST of 82, ALT is 68, and alkaline phosphatase of 127. Lipase normal findings at 108. Serum alcohol level was elevated at 213. Patient was admitted under the services for medical detox. Physical exam: Vital signs reviewed and stable. General: Nontoxic, no distress and appears stated age. Derm: Skin warm and dry, normal coloration for ethnicity. Head: Atraumatic, normocephalic and symmetric. Eyes: EOMs intact, no lid lag, and anicteric sclera Mouth: no lip lesions, mucus membranes moist Cardiovascular: regular rate and rhythm with normal S1S2, no murmur, positive posterior tibial pulses bilaterally, and cap refill < 2 seconds. Lungs: Respirations even, regular, and unlabored on room air. Lungs CTA bilaterally, no rhonchi, no rales, no wheezing, and no accessory muscle usage. Abdominal: soft, nontender to palpation, no guarding, no appreciable organomegaly Ext: ROM intact. No gross muscle atrophy, no edema, no contractures Neuro: Speech clear, face symmetrical and CN II-XII grossly intact with no noted focal neuro deficits Psych: Alert and oriented to person, place, time, and situation. Appropriate and pleasant affect. Assessment and Plan of Care: Alcohol withdrawal Transaminitis secondary 2 alcohol abuse Alcohol intoxication, now clinically sober impending withdrawal -Continue monitoring of CIWA scores and patient to be medicated with Ativan 0.5 mg every 4 hours as needed for CIWA score of 4-5, Ativan 1 mg every 4 hours for CIWA score of 6-7, Ativan 2 mg every 3 hours CIWA score of 8-9, and Ativan 2 mg every 2 hours forr CIWA score of 10 or greater. -Continuous IV hydration lactated Ringer's at 75 mL's per hour -Thiamine 100 mg twice a day -Multivitamin daily -Folate 1 mg daily -Seizure, fall, aspiration, and elopement precautions in place. -Continued close monitoring of electrolytes and replace as needed. -Telemetry monitoring. Data reviewed: Vital signs reviewed. Blood pressure 146/84, heart rate 86, respiratory rate 18, temp 98.6F, SpO2 of 98% on room air. CODE STATUS: full code DVT prophylaxis: heparin Discussed with: pt and RN Anticipated discharge date: Clinical course to determine Anticipated discharge place: Home/[place] Patient was seen independently by Nurse Pracitioner. This document was prepared using [employer] dictation software. Please allow for errors in opticianry teacher, while rare they do occur. Louis Her NP rendered care for this patient independently, reviewed the findings and plan as documented in the note above. I did not physically speak with or examine the patient on this date. Objective - Vital Signs Vital signs: Vital Signs Temp 98.6 F 03/04/23 08:16 Pulse 86 03/04/23 08:16 Resp 18 03/04/23 08:16 BP 146/84 03/04/23 08:16 Pulse Ox 98 03/04/23 08:16 FiO2 Intake & Output 03/03/23 03/04/23 03/04/23 18:59 06:59 18:59 Intake Total 120 Balance 120 Weight 97.522 kg 97.522 kg Intake: Oral 120 - Labs CBC & Chem 7: 03/05/23 06:51 03/05/23 07:11 Labs: Abnormal Lab Results - Last 24 Hours (Table) 03/03/23 03/04/23 03/04/23 Range/Units 16:11 07:06 07:06 RBC 4.25 L (4.30-5.90) m/uL MCV 100.1 H (80.0-100.0) fL Sodium 133 L (137-145) mmol/L Chloride 95 L (98-107) mmol/L AST 82 H (17-59) U/L ALT 68 H 55 H (4-49) U/L Alkaline Phosphatase 127 H (38-126) U/L Serum Alcohol 213 H* mg/dL
[2023-03-04] MEDS ORDERED: PROCHLORPERAZINE INJ 10 MG/2 ML VIAL IVP PRN (17:07)
[2023-03-04] MEDS: HEPARIN SODIUM,PORCINE 5,000 UNIT/ML 1 ML VIAL SQ SCH ×2 (18:03→23:50)
[2023-03-04] MEDS: LACTATED RINGERS 1,000 ML IV SCH (18:04)
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
[2023-03-04] MEDS: MIRTAZAPINE 15 MG TAB PO SCH (20:06)
[2023-03-05 08:01] LABS: ALT 46 U/L (4-49); AST 54 U/L (17-59); African American GFR (CKD) >90 (>60 ml/min/1.73 sqM); Albumin 3.4 g/dL (3.5-5.0); Albumin/Globulin Ratio 1.2; Alkaline Phosphatase 85 U/L (38-126); Anion Gap 4 mmol/L; Blood Urea Nitrogen 17 mg/dL (9-20); Calcium 8.9 mg/dL (8.4-10.2); Carbon Dioxide 31 mmol/L (22-30); Chloride 103 mmol/L (98-107); Globulin 2.9 g/dL; Glucose 110 mg/dL (74-99); Non-African American GFR(CKD) 86 (>60 ml/min/1.73 sqM); Potassium 4.1 mmol/L (3.5-5.1); Sodium 138 mmol/L (137-145); Total Bilirubin 1.3 mg/dL (0.2-1.3); Total Protein 6.3 g/dL (6.3-8.2)
[2023-03-05 08:11] LABS: HCT 44.6 % (39.0-53.0); HGB 14.7 gm/dL (13.0-17.5); MCH 33.2 pg (25.0-35.0); MCV 100.7 fL (80.0-100.0); Macrocytosis Slight; Mean Platelet Volume 8.6; Platelet Count 228 k/uL (150-450); RBC 4.42 m/uL (4.30-5.90); RDW 13.4 % (11.5-15.5); WBC 6.1 k/uL (3.8-10.6)
[2023-03-05] MEDS: PANTOPRAZOLE 40 MG/10 ML VIAL IV SCH (08:12)
[2023-03-05] MEDS: THIAMINE 100 MG TAB PO SCH (08:12)
[2023-03-05] MEDS: MULTIVITAMINS, THERA 1 EACH TAB PO SCH (08:12)
[2023-03-05] MEDS: FOLIC ACID 1 MG TAB PO SCH (08:12)
[2023-03-05] MEDS: HEPARIN SODIUM,PORCINE 5,000 UNIT/ML 1 ML VIAL SQ SCH ×2 (08:12→16:55)
[2023-03-05] MEDS: LACTATED RINGERS 1,000 ML IV SCH ×2 (08:13→20:59)
[2023-03-05] MEDS: LORazepam 2 MG/ML INJ IV PRN ×2 (09:24→20:55)
[2023-03-05] MEDS ORDERED: PROCHLORPERAZINE INJ 10 MG/2 ML VIAL IVP STA (12:47)
[2023-03-05] MEDS ORDERED: KETOROLAC 15 MG/ML 1 ML VIAL IVP STA (12:47)
[2023-03-05] MEDS ORDERED: diphenhydrAMINE 50 MG/ML 1 ML VIAL IVP STA (12:47)
--- NOTE | 2023-03-05 17:00 | P.PN ---
Subjective Progress Note Date: 03/05/23 Hospital course: Patient is a very pleasant 47-year-old male with a past medical history of chronic alcohol abuse. he presented to the hospital on 03/03/23seeing assistance with medical detox.he underwent full evaluation in the emergency department. Labs were completed and reviewed. CBC and BMP were unremarkable. liver profile showing transaminitis with AST of 82, ALT is 68, and alkaline phosphatase of 127. Lipase normal findings at 108. Serum alcohol level was elevated at 213. Patient was admitted under the services for medical detox. Physical exam: Patient seen and evaluated at bedside this morning. Patient reports overall feeling well this morning and then states he breakfast and shortly after began experiencing DTs again with tremors, nausea, and vomiting. Patient now reporting "awful headache". He denies any dizziness, lightheadedness, changes in vision or hearing, but continues to report extreme nausea and had 1 episode of bilious vomiting. Vital signs reviewed and stable. General: Nontoxic, no distress and appears stated age. Derm: Skin warm and dry, normal coloration for ethnicity. Head: Atraumatic, normocephalic and symmetric. Eyes: EOMs intact, no lid lag, and anicteric sclera Mouth: no lip lesions, mucus membranes moist Cardiovascular: regular rate and rhythm with normal S1S2, no murmur, positive posterior tibial pulses bilaterally, and cap refill < 2 seconds. Lungs: Respirations even, regular, and unlabored on room air. Lungs CTA peter aterally, no rhonchi, no rales, no wheezing, and no accessory muscle usage. Abdominal: soft, nontender to palpation, no guarding, no appreciable organomegaly Ext: ROM intact. No gross muscle atrophy, no edema, no contractures Neuro: Speech clear, face symmetrical and CN II-XII grossly intact with no noted focal neuro deficits Psych: Alert and oriented to person, place, time, and situation. Appropriate and pleasant affect. Assessment and Plan of Care: Alcohol withdrawal Transaminitis secondary 2 alcohol abuse Alcohol intoxication, now clinically sober impending withdrawal -Continue monitoring of CIWA scores and patient to be medicated with Ativan 0.5 mg every 4 hours as needed for CIWA score of 4-5, Ativan 1 mg every 4 hours for CIWA score of 6-7, Ativan 2 mg every 3 hours CIWA score of 8-9, and Ativan 2 mg every 2 hours forr CIWA score of 10 or greater. -Continuous IV hydration lactated Ringer's at 75 mL's per hour -Thiamine 100 mg twice a day -Multivitamin daily -Folate 1 mg daily -Seizure, fall, aspiration, and elopement precautions in place. -Continued close monitoring of electrolytes and replace as needed. -Telemetry monitoring. -Scheduled Valium decreased to 5 mg IVP every 8 hours and we will continue to wean as directed by psychiatrist to 5 mg twice a day tomorrow. Depression PTSD Psychiatry evaluated. Started patient on Remeron 15 mg nightly for sleep and depression and recommending Valium a taper. Data reviewed: Vital signs reviewed. Blood pressure 146/84, heart rate 86, respiratory rate 18, temp 98.6F, and SpO2 of 96% on room air. Labs reviewed. CMP showing hypercarbia with bicarbonates 31 and anion gap of 4. Liver enzymes unremarkable. CBC showing macrocytosis with MCV of 100.7. CODE STATUS: Full code DVT prophylaxis: heparin Discussed with: pt and RN Anticipated discharge date: Clinical course to determine Anticipated discharge place: Home/[place] Patient was seen independently by Nurse Pracitioner. This document was prepared using [employer] dictation software. Please allow for errors in occupational medicine physician, while rare they do occur. Louis Her NP rendered care for this patient independently, reviewed the findings and plan as documented in the note above. I did not physically speak with or examine the patient on this date. Objective - Vital Signs Vital signs: Vital Signs Temp 98.5 F 03/05/23 08:05 Pulse 83 03/05/23 08:05 Resp 16 03/05/23 08:05 BP 124/90 03/05/23 08:05 Pulse Ox 95 03/05/23 08:05 FiO2 Intake & Output 03/04/23 03/05/23 03/05/23 18:59 06:59 18:59 Intake Total 2300 1490 Balance 2300 1490 Intake: Intake, IV Titration 900 900 Amount Lactated Ringers 1,000 ml 900 900 @ 75 mls/hr IV .[id number] [place] Rx#:[id number] Oral 1400 590 Other: # Voids 3 1 - Labs CBC & Chem 7: 03/05/23 06:51 03/05/23 07:11 Labs: Abnormal Lab Results - Last 24 Hours (Table) 03/05/23 03/05/23 Range/Units 06:51 07:11 MCV 100.7 H (80.0-100.0) fL Carbon Dioxide 31 H (22-30) mmol/L Glucose 110 H (74-99) mg/dL Albumin 3.4 L (3.5-5.0) g/dL
--- NOTE | 2023-03-05 19:22 | P.PN ---
Progress Note - Text Progress Note Date: 03/05/23 Psychiatry consult follow-up note: Interval history: Patient was seen resting in his bed with lights off this morning. He reports he did not sleep well last night due to alarm beeping, so he is sleeping more today. He is somewhat irritable and dismissive. At this time patient denies any suicidal or homicidal ideation, intent or plan. Denies any auditory or visual hallucinations. Patient denies any side effects from the medications and has been compliant with meds. RN reports patient was irritable this morning and ripped out his IV, was demanding discharge. Vitals signs reviewed and are stable. He is tolerating his Valium taper which was decreased to 5 mg Q8H scheduled for today. MENTAL STATUS EXAM: General Appearance: Patient appears to be stated age, tall well-nourished male. Patient appears to have appropriate hygiene and grooming, has multiple tattoos. Behavior: Patient is laying in bed without any agitated behavior. Fair eye contact, somewhat dismissive. Speech: Patient's speech is fluent and non-pressured. Mood/Affect: Patient reports their mood is "ok, just tired", affect is congruent. Suicidality/Homicidality: Patient denies having any suicidal or homicidal ideation intent or plan. Perceptions: Patient denies any visual hallucinations and denies any auditory hallucinations. Though content/process: There is no evidence of any delusional thought content and thought process is linear and goal-directed. Memory and concentration: AOX3, grossly intact for the purposes of this session. Judgment and insight: poor, in regards to refusing substance abuse treatment IMPRESSIONS: Alcohol withdrawal - tolerating Valium taper Alcohol use disorder, severe Major depressive disorder, recurrent, moderate Post traumatic stress disorder Personality disorder, unspecified PLAN: -At this time patient DOES NOT meet criteria for inpatient psychiatric admission since he is currently denying any thoughts/plans/intent of harm to himself or others. -Would recommend the following medication changes/additions: Continue Remeron 15 mg QHS for sleep/depression. Continue Valium taper: currently at 5 mg IV Q8H scheduled, with plan to further taper and discontinue as tolerated. -CIWA protocol with PRN Ativan for breakthrough alcohol withdrawal. Continue to monitor vital signs. -manager workers compensation to provide patient with outpatient mental health/psychiatry resources for appropriate follow up upon discharge. -[employer] Operator spoke with patient about substance abuse and the harmful effects on medical and mental health, patient verbally understood and agreed. -manager workers compensation to provide patient substance use treatment resources including AA/NA meetings in the community. -manager workers compensation to provide patient with access line number to call for inpatient substance rehab. -Communicated plan to patient's nurse -Will sign off at this time. -Please contact with any questions.
[2023-03-05] MEDS: MIRTAZAPINE 15 MG TAB PO SCH (20:55)
[2023-03-05 21:07] VITALS: RESP 18
[2023-03-06] MEDS: HEPARIN SODIUM,PORCINE 5,000 UNIT/ML 1 ML VIAL SQ SCH ×2 (00:12→07:31)
[2023-03-06] MEDS: MULTIVITAMINS, THERA 1 EACH TAB PO SCH (07:31)
[2023-03-06] MEDS: FOLIC ACID 1 MG TAB PO SCH (07:31)
[2023-03-06] MEDS: THIAMINE 100 MG TAB PO SCH (07:31)
[2023-03-06 07:44] VITALS: BP 144/80; PULSE 78; TEMP 98.3
[2023-03-06] MEDS: PANTOPRAZOLE 40 MG/10 ML VIAL IV SCH (08:08)
--- NOTE | 2023-03-06 09:21 | P.DS ---
Providers Date of admission: 03/03/23 18:02 Expected date of discharge: 03/06/23 Attending physician: Marco Ortiz MD Consults: 03/03/23 17:54 Consult Physician Routine Consulting Provider: Seth Palma Consult Reason/Comments: depressionETOH Do you want consulting provider notified?: Yes Primary care physician: Stated None Hospital Course: Discharge Diagnosis: Alcohol withdrawal Transaminitis secondary 2 alcohol abuse Alcohol intoxication, now clinically sober impending withdrawal Depression PTSD. Psychiatry evaluated. Started patient on Remeron 15 mg nightly for sleep and depression and recommending Valium a taper. Hospital Course: Patient is a very pleasant 47-year-old male with a past medical history of chronic alcohol abuse. he presented to the hospital on 03/03/23seeing assistance with medical detox.he underwent full evaluation in the emergency department. Labs were completed and reviewed. CBC and BMP were unremarkable. liver profile showing transaminitis with AST of 82, ALT is 68, and alkaline phosphatase of 127. Lipase normal findings at 108. Serum alcohol level was elevated at 213. Patient was admitted under the services for medical detox. Patient underwent a 3 night stay for detox and was placed on scheduled Valium in addition to CIWA protocol symptom triggered medication management with benzodiazepines. Initial plan was for patient to medically detox and go to rehab. Received call from RN this morning patient demanding to leave AMA or discharge. Went to bedside to assess and patient was alert to person, place, time, and situation. Vital signs stable with blood pressure 144/80, heart rate 78, respiratory rate 18, temp 98.3F, SpO2 97% on room air. Medically patient is stable recommending further detox however patient declined. Patient declined inpatient rehab blunting to go home at this time. Orders place for discharge. Patient was strongly encouraged to refrain from any and all alcohol use. Patient was provided with outpatient resources community support available to him. Prescription sent for Remeron 15 mg daily to pharmacy patient chose. Physical exam: Vital signs reviewed and stable. General: Nontoxic, no distress and appears stated age. Derm: Skin warm and dry, normal coloration for ethnicity. Head: Atraumatic, normocephalic and symmetric. Eyes: EOMs intact, no lid lag, and anicteric sclera Mouth: no lip lesions, mucus membranes moist Cardiovascular: regular rate and rhythm with normal S1S2, no murmur, positive posterior tibial pulses bilaterally, and cap refill < 2 seconds. Lungs: Respirations even, regular, and unlabored on room air. Lungs CTA bilater ally, no rhonchi, no rales, no wheezing, and no accessory muscle usage. Abdominal: soft, nontender to palpation, no guarding, no appreciable organomegaly Ext: ROM intact. No gross muscle atrophy, no edema, no contractures Neuro: Speech clear, face symmetrical and CN II-XII grossly intact with no noted focal neuro deficits Psych: Alert and oriented to person, place, time, and situation. Appropriate and pleasant affect. A total of 32 minutes of time were spent preparing this complex discharge summary. Pt was discharged on 03/06/23 at 9:17 AM. Patient was seen independently by Nurse Practitioner. This document was prepared using [employer] dictation software. Please allow for errors in medical transcriptionist while rare they do occur. Louis Her NP rendered care for this patient independently, reviewed the findings and plan as documented in the note above. I did not physically speak with or examine the patient on this date. Patient Condition at Discharge: Stable Plan - Discharge Summary Discharge Rx Participant: No New Discharge Prescriptions: New Mirtazapine [Remeron] 15 mg PO HS 30 Days #30 tab Discharge Medication List Mirtazapine [Remeron] 15 mg PO HS 30 Days #30 tab 03/06/23 [Rx] Follow up Appointment(s)/Referral(s): None,Stated [Primary Care Provider] - 1-2 days Patient Instructions/Handouts: Mirtazapine (By mouth), Alcohol Intoxication (ED), Alcohol Withdrawal (DC) Activity/Diet/Wound Care/Special Instructions: Activity: As tolerated. Take breaks as needed. Diet: Regular diet Special Instructions: Take all of your medications as directed and remember to keep all of your doctor's appointments and follow-up as needed. Strongly recommend attending inpatient drug and alcohol rehabilitation facility. Strongly advise you to refrain from any and all alcohol use. Your liver enzymes are elevated and continued use of alcohol will lead to alcoholic hepatitis. Thank you for allowing us to participate in your care, it was truly a pleasure having you for our patient!!! Discharge/Stand Alone Forms: AA Meetings [place], Outpatient Counseling, Inp Substance Abuse Facilities Discharge Disposition: HOME SELF-CARE
== END 2023-03-06 10:01 | disposition home or self-care (01) ==
LOC: EC 14:40 → 5NMEDONC 18:02
PROVIDERS: ADMIT Internal Medicine; ATTEND Internal Medicine
DX: F10.231 Alcohol dependence with withdrawal delirium (principal); F10.229 Alcohol dependence with intoxication, unspecified; Y90.7 Blood alcohol level of 200-239 mg/100 ml; R74.01 Elevation of levels of liver transaminase levels; Z87.891 Personal history of nicotine dependence; E66.9 Obesity, unspecified; Z68.28 Body mass index [BMI] 28.0-28.9, adult; F43.10 Post-traumatic stress disorder, unspecified; F33.1 Major depressive disorder, recurrent, moderate; F60.9 Personality disorder, unspecified
CPT/HCPCS: 96376 ×5; 96372 ×4; 96375 ×2; 96374; 99285; 36415; 80053 ×3; 83690; 83735 ×3; 84100 ×2; 84484; 85025 ×2; 85027; 80320; G0378 ×4; J2060 ×2; J2270; J1200; J0780 ×2; J1644 ×3; J3411; J3360 ×4; J2405 ×2; J1885; C9113 ×4

== ENCOUNTER 2023-03-08 14:20 | Emergency (ER) | payer OTHER ==
--- NOTE | 2023-03-08 14:23 | ED ---
General Adult HPI - General Stated complaint: R arm infected Time Seen by Provider: 03/08/23 14:21 Source: patient, RN notes reviewed Mode of arrival: ambulatory Limitations: no limitations - History of Present Illness Initial comments: 47-year-old male presents emergency Department with chief complaint of right arm pain and swelling. Patient was recently emergency department for evaluation states he had an IV. Patient states that he has pain, swelling and redness at the site. Patient states his arm was very hot. - Related Data Previous Rx's Medication Instructions Recorded Mirtazapine [Remeron] 15 mg PO HS 30 Days #30 tab 03/06/23 Cephalexin [Keflex] 500 mg PO Q6HR #28 cap 03/08/23 Ibuprofen [Motrin] 600 mg PO Q8HR PRN #30 tab 03/08/23 Allergies Allergy/AdvReac Type Severity Reaction Status Date / Time No Known Allergies Allergy Verified 03/03/23 19:47 Review of Systems ROS Statement: Those systems with pertinent positive or pertinent negative responses have been documented in the HPI. ROS Other: All systems not noted in ROS Statement are negative. Past Medical History Past Medical History: No Reported History History of Any Multi-Drug Resistant Organisms: None Reported Additional Past Surgical History / Comment(s): CYST REMOVED FROM CHEST AREA, COLONOSCOPY Past Anesthesia/Blood Transfusion Reactions: No Reported Reaction Past Psychological History: No Psychological Hx Reported Smoking Status: Former smoker Past Alcohol Use History: Abuse, Daily, Heavy Additional Past Alcohol Use History / Comment(s): STARTED SMOKING AT AGE 15 QUIT 12/2021 QUIT DRINKING FEB 2021, started again recently, fifth of vodka daily Past Drug Use History: Marijuana - Past Family History Mother Family Medical History: No Reported History General Exam Limitations: no limitations General appearance: alert, in no apparent distress Head exam: Present: atraumatic, normocephalic, normal inspection Respiratory exam: Present: normal lung sounds bilaterally. Absent: respiratory distress, wheezes, rales, rhonchi, stridor Cardiovascular Exam: Present: regular rate, normal rhythm, normal heart sounds. Absent: systolic murmur, diastolic murmur, rubs, gallop, clicks Extremities exam: Present: other (Small area of erythema at the right before meals, there is palpable vessel the right forearm, right bicep) Course Vital Signs 03/08/23 15:37 Temperature 98 F Pulse Rate 99 Respiratory 18 Rate Blood Pressure 136/95 O2 Sat by Pulse 97 Oximetry Medical Decision Making - Medical Decision Making Was pt. sent in by a medical professional or institution (NAHOMI Chan, CONCRETE PANEL INSTALLER, urgent care, hospital, or residential...) When possible be specific @ -No Did you speak to anyone other than the patient for history (EMS, parent, family, police, friend...)? What history was obtained from this source @ -No Did you review nursing and triage notes (agree or disagree)? Why? @ -I reviewed and agree with nursing and triage notes Were old charts reviewed (outside hosp., previous admission, EMS record, old EKG, old radiological studies, urgent care reports/EKG's, residential records)? Report findings @ -No old charts were reviewed Differential Diagnosis (chest pain, altered mental status, abdominal pain women, abdominal pain men, vaginal bleeding, weakness, fever, dyspnea, syncope, headac he, dizziness, GI bleed, back pain, seizure, CVA, palpatations, mental health, musculoskeletal)? @ -Superficial thrombophlebitis, DVT EKG interpreted by me (3pts min.). @ -None X-rays interpreted by me (1pt min.). @ -None done CT interpreted by me (1pt min.). @ -None done U/S interpreted by me (1pt. min.). @ -Ultrasound shows no evidence of DVT there is noted SVT What testing was considered but not performed or refused? (CT, X-rays, U/S, labs)? Why? @ -None What meds were considered but not given or refused? Why? @ -None Did you discuss the management of the patient with other professionals (professionals i.e. NAHOMI Chan, CONCRETE PANEL INSTALLER, lab, RT, psych nurse, social sciences chair, art objects salesperson, teacher, first officer, human services case manager)? Give summary @ -No Was smoking cessation discussed for >3mins.? @ -No Was critical care preformed (if so, how long)? @ -No Were there social determinants of health that impacted care today? How? (Homelessness, low income, unemployed, alcoholism, drug addiction, transportation, low edu. Level, literacy, decrease access to med. care, retirement, rehab)? @ -No Was there de-escalation of care discussed even if they declined (Discuss DNR or withdrawal of care, Hospice)? DNR status @ -No What co-morbidities impacted this encounter? (DM, HTN, Smoking, COPD, CAD, Cancer, CVA, ARF, Chemo, Hep., AIDS, mental health diagnosis, sleep apnea, morbid obesity)? @ -None Was patient admitted / discharged? Hospital course, mention meds given and route, prescriptions, significant lab abnormalities, going to OR and other pertinent info. @ -Discharge patient has superficial thrombophlebitis patient was started on anti-inflammatories there is concern of site infection at this site of insertion of prior IV patient was given antibiotics. There is not a superficial clot within 2 cm of deep vessel. Undiagnosed new problem with uncertain prognosis? @ -No Drug Therapy requiring intensive monitoring for toxicity (Heparin, Nitro, Insulin, Cardizem)? @ -No Were any procedures done? @ -No Diagnosis/symptom? @ -Superficial thrombophlebitis Acute, or Chronic, or Acute on Chronic? @ -Acute Uncomplicated (without systemic symptoms) or Complicated (systemic symptoms)? @ -Uncomplicated Side effects of treatment? @ -No Exacerbation, Progression, or Severe Exacerbation? @ -No Poses a threat to life or bodily function? How? (Chest pain, [place], [place], pneumonia, PE, COPD, DKA, ARF, appy, cholecystitis, CVA, Diverticulitis, Homicidal, Suicidal, threat to staff... and all critical care pts) @ -No Disposition Clinical Impression: Superficial thrombophlebitis of right upper extremity Disposition: HOME SELF-CARE Condition: Stable Instructions (If sedation given, give patient instructions): Superficial Thrombophlebitis (ED) Additional Instructions: Apply warm compresses to your right arm.Please return to the Emergency Department if symptoms worsen or any other concerns. Prescriptions: Cephalexin [Keflex] 500 mg PO Q6HR #28 cap Ibuprofen [Motrin] 600 mg PO Q8HR PRN #30 tab PRN Reason: Pain Is patient prescribed a controlled substance at d/c from ED?: No Referrals: None,Stated [Primary Care Provider] - 1-2 days Time of Disposition: 15:42
--- NOTE | 2023-03-08 15:32 | US ---
EXAMINATION TYPE: US venous doppler duplex UE RT DATE OF EXAM: 03/08/2023 COMPARISON: NONE CLINICAL INDICATION: Male, 47 years old with history of pain, swelling; pain and swelling ro right ar m, IV site 1 week ago SIDE PERFORMED: Right Right Arm: Negative for DVT internal echoes that do not compress within cephalic vein, positive SVT IMPRESSION: 1. Right upper extremity negative for deep venous thrombosis. 2. There is superficial venous thrombosis in the cephalic vein.
[2023-03-09 15:43] VITALS: BP 136/95; PULSE 99; RESP 18; TEMP 98
== END 2023-03-08 15:48 | disposition home or self-care (01) ==
LOC: EC 14:20
DX: I80.8 Phlebitis and thrombophlebitis of other sites (principal); F12.90 Cannabis use, unspecified, uncomplicated; Z87.891 Personal history of nicotine dependence
CPT/HCPCS: 99283

== ENCOUNTER 2023-05-21 16:09 | Observation (INO) | payer OTHER ==
[2023-05-21 16:34] LABS: Basophils # (A) 0.1 k/uL (0-0.2); Basophils % (A) 1 %; Eosinophils # (A) 0.1 k/uL (0-0.7); Eosinophils % (A) 1 %; Lymphocytes # (A) 3.8 k/uL (1.0-4.8); Lymphocytes % (A) 41 %; MCH 34.6 pg (25.0-35.0); MCHC 34.3 g/dL (31.0-37.0); Macrocytosis Slight; Mean Platelet Volume 8.3; Monocytes # (A) 0.4 k/uL (0-1.0); Monocytes % (A) 5 %; Neutrophils # (A) 4.7 k/uL (1.3-7.7); Neutrophils % (A) 50 %; Platelet Count 312 k/uL (150-450); RBC 5.73 m/uL (4.30-5.90); RDW 13.5 % (11.5-15.5); WBC 9.3 k/uL (3.8-10.6)
[2023-05-21 16:45] LABS: HCT 57.8 % (39.0-53.0); HGB 19.8 gm/dL (13.0-17.5)
[2023-05-21 16:46] LABS: ALT 90 U/L (4-49); AST 108 U/L (17-59); African American GFR (CKD) >90 (>60 ml/min/1.73 sqM); Albumin 4.9 g/dL (3.5-5.0); Alkaline Phosphatase 130 U/L (38-126); Anion Gap 24 mmol/L; Blood Urea Nitrogen 13 mg/dL (9-20); Calcium 9.4 mg/dL (8.4-10.2); Carbon Dioxide 13 mmol/L (22-30); Chloride 106 mmol/L (98-107); Glucose 91 mg/dL (74-99); Magnesium 1.9 mg/dL (1.6-2.3); Non-African American GFR(CKD) 80 (>60 ml/min/1.73 sqM); Potassium 4.8 mmol/L (3.5-5.1); Sodium 143 mmol/L (137-145); Total Bilirubin 0.6 mg/dL (0.2-1.3); Total Protein 8.4 g/dL (6.3-8.2)
[2023-05-21 17:01] LABS: Alcohol 374 mg/dL
[2023-05-21] MEDS ORDERED: SODIUM CHLORIDE 0.9% 1,000 ML IV STA (17:24)
--- NOTE | 2023-05-21 17:33 | ED ---
Alcohol HPI - General Chief Complaint: Alcohol Stated Complaint: detox Time Seen by Provider: 05/21/23 17:20 Source: patient, RN notes reviewed Mode of arrival: ambulatory Limitations: no limitations - History of Present Illness Initial Comments: Patient is a 48-year-old male presented ER with a chief complaint of alcohol intoxication. Patient states his last drink was about an hour ago and he usually drinks liquor. Patient denies any history of withdrawal or DTs. Patient has been in rehab before for alcohol. Patient states he would like a placed in [place]. Patient denies any other complaints at this time. - Related Data Home Medications Medication Instructions Recorded Confirmed No Known Home Medications 05/21/23 05/21/23 Allergies Allergy/AdvReac Type Severity Reaction Status Date / Time No Known Allergies Allergy Verified 05/21/23 19:33 Review of Systems ROS Statement: Those systems with pertinent positive or pertinent negative responses have been documented in the HPI. ROS Other: All systems not noted in ROS Statement are negative. Past Medical History Past Medical History: No Reported History Additional Past Medical History / Comment(s): alcoholism History of Any Multi-Drug Resistant Organisms: None Reported Additional Past Surgical History / Comment(s): CYST REMOVED FROM CHEST AREA, COLONOSCOPY Past Anesthesia/Blood Transfusion Reactions: No Reported Reaction Past Psychological History: No Psychological Hx Reported Smoking Status: Former smoker Past Alcohol Use History: Abuse, Daily, Heavy Past Drug Use History: Marijuana - Past Family History Mother Family Medical History: No Reported History General Exam Limitations: no limitations General appearance: alert, in no apparent distress Respiratory exam: Present: normal lung sounds bilaterally. Absent: respiratory distress, wheezes, rales, rhonchi, stridor Cardiovascular Exam: Present: regular rate, normal rhythm, normal heart sounds. Absent: systolic murmur, diastolic murmur, rubs, gallop, clicks Neurological exam: Present: alert, oriented X3, CN II-XII intact Psychiatric exam: Present: normal affect, normal mood, anxious Skin exam: Present: warm (Face is flushed), dry Course Vital Signs 05/21/23 05/21/23 05/22/23 16:09 20:01 08:25 Temperature 98 F 98 F Pulse Rate 124 H 104 H 94 Respiratory 22 20 18 Rate Blood Pressure 133/89 108/76 112/78 O2 Sat by Pulse 99 96 96 Oximetry Medical Decision Making - Medical Decision Making Was pt. sent in by a medical professional or institution (, [facility], [facility], urgent care, hospital, or usp...) When possible be specific @ -No Did you speak to anyone other than the patient for history (EMS, parent, family, police, friend...)? What history was obtained from this source @ -No Did you review nursing and triage notes (agree or disagree)? Why? @ -I reviewed and agree with nursing and triage notes Were old charts reviewed (outside hosp., previous admission, EMS record, old EKG, old radiological studies, urgent care reports/EKG's, usp records)? Report findings @ -No old charts were reviewed Differential Diagnosis (chest pain, altered mental status, abdominal pain women, abdominal pain men, vaginal bleeding, weakness, fever, dyspnea, syncope, headache, dizziness, GI bleed, back pain, seizure, CVA, palpatations, mental health, musculoskeletal)? @ -Differential Mental Health: Depression, anxiety, bipolar, psychosis, schizophrenia, borderline personality, situational depression, adjustment disorder, behavioral disorder, brain tumor, malingering, substance abuse, encephalopathy, medication reaction, dementia, hypothyroidism, degenerative neurologic disorder, lupus.... This is not meant to be all-inclusive list EKG interpreted by me (3pts min.). @ -None X-rays interpreted by me (1pt min.). @ -None done CT interpreted by me (1pt min.). @ -None done U/S interpreted by me (1pt. min.). @ -None done What testing was considered but not performed or refused? (CT, X-rays, U/S, labs)? Why? @ -None What meds were considered but not given or refused? Why? @ -None Did you discuss the management of the patient with other professionals (professionals i.e. , [facility], [facility], lab, RT, psych nurse, child protective services social worker, strategic debriefing officer, teacher, deportation officer, comp field case manager)? Give summary @ -Yes, I spoke with Dr. Sullivan for admission. Was smoking cessation discussed for >3mins.? @ -No Was critical care preformed (if so, how long)? @ -No Were there social determinants of health that impacted care today? How? (Home lessness, low income, unemployed, alcoholism, drug addiction, transportation, low edu. Level, literacy, decrease access to med. care, [facility], rehab)? @ -No Was there de-escalation of care discussed even if they declined (Discuss DNR or withdrawal of care, Hospice)? DNR status @ -No What co-morbidities impacted this encounter? (DM, HTN, Smoking, COPD, CAD, Cancer, CVA, ARF, Chemo, Hep., AIDS, mental health diagnosis, sleep apnea, morbid obesity)? @ -None Was patient admitted / discharged? Hospital course, mention meds given and route, prescriptions, significant lab abnormalities, going to OR and other pertinent info. @ -Admitted. On examination the patient's vitals are stable. Laboratory studies were significant for a serum blood alcohol level of 374. Hgb 19.8 and Hct 57.8. There is also transaminitis noted. Patient was started on 1 L of IV fluids and CIWA protocol. Patient received 4mg IV ativan and a nicotine patch while in ER. Patient will be admitted for further care. Patient states he would like to be placed in rehab at discharge. Patient expressed understanding and agreement with care plan. Undiagnosed new problem with uncertain prognosis? @ -No Drug Therapy requiring intensive monitoring for toxicity (Heparin, Nitro, Insulin, Cardizem)? @ -No Were any procedures done? @ -No Diagnosis/symptom? @ -Alcohol intoxication Acute, or Chronic, or Acute on Chronic? @ -Acute Uncomplicated (without systemic symptoms) or Complicated (systemic symptoms)? @ -Complicated Side effects of treatment? @ -No Exacerbation, Progression, or Severe Exacerbation? @ -No Poses a threat to life or bodily function? How? (Chest pain, USA, ID, pneumonia, PE, COPD, DKA, ARF, appy, cholecystitis, CVA, Diverticulitis, Homicidal, Suicidal, threat to staff... and all critical care pts) @ -No - Lab Data Result diagrams: 05/21/23 16:14 05/21/23 16:14 Lab Results 05/21/23 05/21/23 Range/Units 16:14 16:14 WBC 9.3 (3.8-10.6) k/uL RBC 5.73 (4.30-5.90) m/uL Hgb 19.8 H* (13.0-17.5) gm/dL Hct 57.8 H* (39.0-53.0) % MCV 101.0 H (80.0-100.0) fL MCH 34.6 (25.0-35.0) pg MCHC 34.3 (31.0-37.0) g/dL RDW 13.5 (11.5-15.5) % Plt Count 312 (150-450) k/uL MPV 8.3 Neutrophils % 50 % Lymphocytes % 41 % Monocytes % 5 % Eosinophils % 1 % Basophils % 1 % Neutrophils # 4.7 (1.3-7.7) k/uL Lymphocytes # 3.8 (1.0-4.8) k/uL Monocytes # 0.4 (0-1.0) k/uL Eosinophils # 0.1 (0-0.7) k/uL Basophils # 0.1 (0-0.2) k/uL Macrocytosis Slight Sodium 143 (137-145) mmol/L Potassium 4.8 (3.5-5.1) mmol/L Chloride 106 (98-107) mmol/L Carbon Dioxide 13 L (22-30) mmol/L Anion Gap 24 mmol/L BUN 13 (9-20) mg/dL Creatinine 1.08 (0.66-1.25) mg/dL Est GFR (CKD-EPI)AfAm >90 (>60 ml/min/1.73 sqM) Est GFR (CKD-EPI)NonAf 80 (>60 ml/min/1.73 sqM) Glucose 91 (74-99) mg/dL Calcium 9.4 (8.4-10.2) mg/dL Magnesium 1.9 (1.6-2.3) mg/dL Total Bilirubin 0.6 (0.2-1.3) mg/dL AST 108 H (17-59) U/L ALT 90 H (4-49) U/L Alkaline Phosphatase 130 H (38-126) U/L Total Protein 8.4 H (6.3-8.2) g/dL Albumin 4.9 (3.5-5.0) g/dL Serum Alcohol 374 H* mg/dL Disposition Clinical Impression: Alcoholic intoxication Disposition: ADMITTED IP TO THIS [facility] Condition: Stable Time of Disposition: 18:09
[2023-05-21] MEDS ORDERED: NALOXONE 0.4 MG/ML 1 ML VIAL IV PRN (18:03)
[2023-05-21] MEDS ORDERED: ONDANSETRON 4 MG/2 ML VIAL IVP PRN (18:03)
[2023-05-21] MEDS ORDERED: ACETAMINOPHEN TAB 325 MG TAB PO PRN (18:03)
[2023-05-21] MEDS ORDERED: LORazepam 2 MG/ML INJ IV STA (18:18)
[2023-05-21] MEDS: SODIUM CHLORIDE 0.9% 1,000 ML IV SCH (18:22)
[2023-05-21] MEDS ORDERED: LORazepam 2 MG/ML INJ IV PRN (19:35)
[2023-05-21] MEDS ORDERED: THIAMINE 100 MG/ML 2 ML VIAL IM STA (19:35)
[2023-05-21] MEDS ORDERED: NICOTINE 21MG/24HR PATCH TRANSDERM STA (19:49)
[2023-05-21] MEDS: LORazepam 2 MG/ML INJ IV PRN (20:51)
[2023-05-21] MEDS ORDERED: chlordiazePOXIDE 25 MG CAP PO STA (21:38)
--- NOTE | 2023-05-22 06:39 | P.HPIM ---
History of Present Illness H&P Date: 05/21/23 Chief Complaint: Alcohol withdrawal 48-year-old male with alcohol dependence Patient coming in for evaluation after he decided to quit alcohol his last drink was just before he came in here admits to drinking heavily about 2 pints of hard liquor every day he also admits tobacco smoking and using marijuana. He reports history of multiple episodes of alcohol withdrawal requiring ICU admissions with alcohol withdrawal seizures in the past. He currently denies any fevers chills shortness of breath nausea vomiting abdominal pain denies any diarrhea or changes in bowel or urinary habits He does report occasional blood in his stool denies any history of colonoscopy denies any weight loss review of systems Pertinent positives as noted in HPI. All other systems were reviewed and are negative on exam Constitutional: No acute distress, Eyes: Anicteric sclerae, moist conjunctiva, Pupils equal round reactive to light ENMT: NC/AT Oropharynx clear, no erythema, or exudates Neck: Supple, no masses, or JVD No carotid bruits No thyromegaly Lungs: Clear to auscultation Clear to percussion Normal respiratory effort, no accessory muscle use Cardiovascular: Heart regular in rate and rhythm, No murmurs, gallops, or rubs No peripheral edema Abdominal: Soft Nontender, no guarding, rebound or rigidity Abdomen moving with respiration Normoactive bowel sounds No hepatomegaly, No splenomegaly No palpable mass No abdominal wall hernia noted Extremities: No digital cyanosis No clubbing Pedal pulses intact and symmetrical Radial pulses intact and symmetrical No calf tenderness Psychiatric: Alert and oriented to person, place and time Appropriate affect fair judgement Neuro Muscles Strength 5/5 in all 4 extremities Sensation to light touch grossly present throughout Cranial nerves II-XII grossly intact Lymphatics: no palpable cervical or supraclavicular lymph nodes Past Medical History Past Medical History: No Reported History Additional Past Medical History / Comment(s): alcoholism History of Any Multi-Drug Resistant Organisms: None Reported Additional Past Surgical History / Comment(s): CYST REMOVED FROM CHEST AREA, COLONOSCOPY Past Anesthesia/Blood Transfusion Reactions: No Reported Reaction Past Psychological History: No Psychological Hx Reported Smoking Status: Former smoker Past Alcohol Use History: Abuse, Daily, Heavy Past Drug Use History: Marijuana - Past Family History Mother Family Medical History: No Reported History Medications and Allergies Home Medications Medication Instructions Recorded Confirmed Type No Known Home Medications 05/21/23 05/21/23 History Allergies Allergy/AdvReac Type Severity Reaction Status Date / Time No Known Allergies Allergy Verified 05/21/23 19:33 Physical Exam Vitals: Vital Signs Temp Pulse Resp BP Pulse Ox 05/21/23 20:01 104 H 20 108/76 96 05/21/23 16:09 98 F 124 H 22 133/89 99 Intake and Output 05/21/23 05/21/23 05/22/23 14:59 22:59 06:59 Other: Weight 95.254 kg Results CBC & Chem 7: 05/21/23 16:14 05/21/23 16:14 Labs: Abnormal Lab Results - Last 24 Hours (Table) 05/21/23 05/21/23 Range/Units 16:14 16:14 Hgb 19.8 H* (13.0-17.5) gm/dL Hct 57.8 H* (39.0-53.0) % MCV 101.0 H (80.0-100.0) fL Carbon Dioxide 13 L (22-30) mmol/L AST 108 H (17-59) U/L ALT 90 H (4-49) U/L Alkaline Phosphatase 130 H (38-126) U/L Total Protein 8.4 H (6.3-8.2) g/dL Serum Alcohol 374 H* mg/dL Assessment and Plan Assessment: 48-year-old male with alcohol dependence coming in for alcohol withdrawal symptoms patient decided to quit drinking I discussed case with the ED doctor and accepted the admission for alcohol withdrawal syndrome with anticipated length of stay more than 2 midnights Alcohol dependence with alcohol withdrawal Patient decided to quit drinking Patient is hoping for placement at [facility] Continue with benzodiazepines per CIWA scale Seizure precautions IV fluid hydration normal saline 1 30 mL per hour Thiamine by mouth daily Alcohol [id number] Blood work showing hemoglobin 19.8 probably hemoconcentrated in addition to a component of secondary polycythemia from smoking White count 10.3 Blood urea nitrogen 13 creatinine 1 Sodium 143 potassium 4.8 Transaminitis most likely secondary to alcohol abuse AST 108 ALT 9 Alk phos 1:30 Full code DVT prophylaxis heparin subcu 3 times a day
[2023-05-22] MEDS: HEPARIN SODIUM,PORCINE 5,000 UNIT/ML 1 ML VIAL SQ SCH ×2 (07:26→17:03)
[2023-05-22] MEDS: LORazepam 2 MG/ML INJ IV PRN ×3 (07:53→17:03)
[2023-05-22] MEDS: SODIUM CHLORIDE 0.9% 1,000 ML IV SCH ×3 (07:58→20:23)
[2023-05-22 11:04] LABS: ALT 77 U/L (10-49); AST 88 U/L (14-35); Albumin 3.9 g/dL (3.8-4.9); Alkaline Phosphatase 110 U/L (41-126); Blood Urea Nitrogen 11.7 mg/dL (9.0-27.0); Calcium 9.4 mg/dL (8.7-10.3); Carbon Dioxide 24.4 mmol/L (21.6-31.8); Chloride 103 mmol/L (96-109); Globulin 2.6 g/dL (1.6-3.3); Glucose 123 mg/dL (70-110); Potassium 4.3 mmol/L (3.5-5.5); Sodium 141 mmol/L (135-145); Total Bilirubin 0.9 mg/dL (0.3-1.2); Total Protein 6.5 g/dL (6.2-8.2)
[2023-05-22 11:13] LABS: Basophils % (A) 1.2 %; Eosinophils # (A) 0.06 X 10*3/uL (0.04-0.35); Eosinophils % (A) 0.7 %; HCT 48.6 % (39.6-50.0); HGB 17.3 g/dL (13.0-17.0); Lymphocytes # (A) 1.32 X 10*3/uL (0.90-5.00); Lymphocytes % (A) 15.4 %; MCH 34.9 pg (27.0-32.0); MCHC 35.6 g/dL (32.0-37.0); Mean Platelet Volume 10.4 FL (9.5-12.2); Monocytes # (A) 0.79 X 10*3/uL (0.20-1.00); Monocytes % (A) 9.2 %; NRBC Per 100 WBC 0 X 10*3/uL (0.00-0.01); Neutrophils # (A) 6.28 X 10*3/uL (1.80-7.70); Neutrophils % (A) 73.2 %; Platelet Count 253 X 10*3/uL (140-440); RBC 4.96 X 10*6/uL (4.40-5.60); RDW 12.9 % (11.5-14.5); WBC 8.58 X 10*3/uL (4.50-10.00)
--- NOTE | 2023-05-22 14:48 | P.PN ---
Subjective Progress Note Date: 05/22/23 Hospital Course: 48-year-old male with history of alcohol dependence drinking about 2 pints of hard to occur every day, nicotine dependence, marijuana user presenting with alcohol intoxication. He was slightly tachycardic when he first presented, now vital signs have been within normal limits. Her hemoglobin has been elevated, bicarb initially was 13 with serum alcohol level of 374, mildly elevated AST to ALT. Patient admitted for alcohol intoxication, started on IV fluids, also likely impending withdrawals. Subjective: Patient seen and examined at bedside. No acute events overnight. Pertinent positives and negatives as discussed above, a complete review of systems was performed and all other systems are negative. Vitals Signs Reviewed. General: nontoxic, no distress, appears at stated age Derm: warm, dry Head: atraumatic, normocephalic, symmetric Eyes: EOMI, no lid lag, anicteric sclera Mouth: no lip lesion, mucus membranes moist Cardiovascular: S1S2 reg, no murmur Lungs: CTA bilateral, no rhonchi, no rales , no accessory muscle use Abdominal: soft, nontender to palpation, no guarding, no appreciable organomegaly Ext: no gross muscle atrophy, no edema, no contractures Neuro: CN II-XI grossly intact, no focal neuro deficits, slight extension tremors Psych: Alert, oriented, appropriate affect Data Reviewed Today: Pertinent Labs: WBC 8.48, hemoglobin 17.3, bicarb 24.4, creatinine 1, AST 88, ALT 77 Imaging: No new imaging Assessment and Plan: Active: Acute alcohol intoxication Alcohol dependence with impending withdrawal -Continue to monitor for withdrawal as per CIWA scale, Ativan IV when necessary as needed, monitor for respiratory depression -Thiamine 100 mg daily -IV fluids, normal saline 1 30 mL an hour -Seizure cautions -Continue telemetry Nicotine dependence Polycythemia -Likely secondary to smoking -Repeat CBC tomorrow Transaminitis, likely in the setting of alcohol use -Improving, repeat CMP tomorrow Resolved: Metabolic acidosis DVT ppx: Heparin subcu Code status: Full code Anticipated discharge place: Pending clinical course Anticipated discharge time: Pending clinical course Objective - Vital Signs Vital signs: Vital Signs Temp 98 F 05/22/23 11:41 Pulse 92 05/22/23 11:41 Resp 15 05/22/23 11:41 BP 132/88 05/22/23 11:41 Pulse Ox 97 11/27/23 11:41 FiO2 Intake & Output 05/21/23 05/22/23 05/22/23 18:59 06:59 18:59 Weight 95.254 kg - Labs CBC & Chem 7: 05/22/23 08:22 05/22/23 08:22 Labs: Abnormal Lab Results - Last 24 Hours (Table) 05/21/23 05/21/23 05/22/23 Range/Units 16:14 16:14 08:22 Hgb 19.8 H* 17.3 H (13.0-17.5) gm/dL Hct 57.8 H* (39.0-53.0) % MCV 101.0 H 98.0 H (80.0-100.0) fL MCH 34.9 H (27.0-32.0) pg Carbon Dioxide 13 L (22-30) mmol/L Anion Gap (4.00-12.00) mmol/L BUN/Creatinine Ratio (12.00-20.00) Ratio Glucose (70-110) mg/dL AST 108 H (17-59) U/L ALT 90 H (4-49) U/L Alkaline Phosphatase 130 H (38-126) U/L Total Protein 8.4 H (6.3-8.2) g/dL Albumin/Globulin Ratio (1.60-3.17) Ratio Serum Alcohol 374 H* mg/dL 05/22/23 Range/Units 08:22 Hgb (13.0-17.5) gm/dL Hct (39.0-53.0) % MCV (80.0-100.0) fL MCH (27.0-32.0) pg Carbon Dioxide (22-30) mmol/L Anion Gap 13.60 H (4.00-12.00) mmol/L BUN/Creatinine Ratio 11.70 L (12.00-20.00) Ratio Glucose 123 H (70-110) mg/dL AST 88 H (17-59) U/L ALT 77 H (4-49) U/L Alkaline Phosphatase (38-126) U/L Total Protein (6.3-8.2) g/dL Albumin/Globulin Ratio 1.50 L (1.60-3.17) Ratio Serum Alcohol mg/dL
[2023-05-23] MEDS: LORazepam 2 MG/ML INJ IV PRN ×2 (00:14→08:17)
[2023-05-23] MEDS: SODIUM CHLORIDE 0.9% 1,000 ML IV SCH ×2 (00:31→08:03)
[2023-05-23] MEDS: HEPARIN SODIUM,PORCINE 5,000 UNIT/ML 1 ML VIAL SQ SCH ×2 (00:31→08:02)
[2023-05-23 08:30] VITALS: BP 128/78; PULSE 71; RESP 18; TEMP 97.6
--- NOTE | 2023-05-23 12:25 | P.DS ---
Providers Date of admission: 05/21/23 20:11 Expected date of discharge: 05/23/23 Attending physician: Bladimir Sullivan MD Consults: 05/23/23 01:17 Consult Physician Routine Consulting Provider: Seth Palma Consult Reason/Comments: depression Do you want consulting provider notified?: Yes, Notify in am Primary care physician: Stated None Hospital Course: Discharge Diagnosis: Acute alcohol intoxication Alcohol dependence with impending withdrawal Nicotine dependence Polycythemia Transaminitis, likely in the setting of alcohol use Metabolic acidosis Hospital Course: 48-year-old male with history of alcohol dependence drinking about 2 pints of hard to occur every day, nicotine dependence, marijuana user presenting with alcohol intoxication. He was slightly tachycardic when he first presented, now vital signs have been within normal limits. Her hemoglobin has been elevated, bicarb initially was 13 with serum alcohol level of 374, mildly elevated AST to ALT. Patient admitted for alcohol intoxication, started on IV fluids, also likely impending withdrawals. While intoxicated, patient may need comments about harming himself and harming others. He was petitioned by nursing. However, on my assessment today, patient is alert and orientated. He does not endorse any suicidal or homicidal ideation. He claims that he wants to continue living for his daughter and his family. He does not have any firearms or any other weapons at home. He will be going directly home and then follow up with [facility] at [facility] for therapy and also try to get into [facility]. Patient is being discharged home. Patient seen and examined at bedside. Vital signs reviewed and stable. General: nontoxic, no distress, appears at stated age Derm: warm, dry Head: atraumatic, normocephalic, symmetric Eyes: EOMI, no lid lag, anicteric sclera Mouth: no lip lesion, mucus membranes moist Cardiovascular: S1S2 reg, no murmur Lungs: CTA bilateral, no rhonchi, no rales , no accessory muscle use Abdominal: soft, nontender to palpation, no guarding, no appreciable organomegaly Ext: no gross muscle atrophy, no edema, no contractures Neuro: CN II-XI grossly intact, no focal neuro deficits Psych: Alert, oriented, appropriate affect A total of 33 minutes of time were spent preparing this complex discharge summary. Patient was discharged on 05/23/23 at 9:58. Patient Condition at Discharge: Stable Plan - Discharge Summary New Discharge Prescriptions: New Thiamine [Vitamin B-1] 100 mg PO DAILY #90 tablet Discharge Medication List Thiamine [Vitamin B-1] 100 mg PO DAILY #90 tablet 05/23/23 [Rx] Follow up Appointment(s)/Referral(s): None,Stated [Primary Care Provider] - 1-2 days Patient Instructions/Handouts: Abuse of Alcohol (DC), Alcohol Dependence (ED) Activity/Diet/Wound Care/Special Instructions: Please see Therapy at [facility]. Discharge Disposition: HOME SELF-CARE
== END 2023-05-23 10:38 | disposition home or self-care (01) ==
LOC: EC 16:09 → 6NMEDSUR 20:11
PROVIDERS: ADMIT Student in an Organized Health Care Education/Training Program; ATTEND Student in an Organized Health Care Education/Training Program
DX: F10.229 Alcohol dependence with intoxication, unspecified (principal); E87.20 Acidosis, unspecified; R74.01 Elevation of levels of liver transaminase levels; D75.1 Secondary polycythemia; Y90.8 Blood alcohol level of 240 mg/100 ml or more; Z98.890 Other specified postprocedural states
CPT/HCPCS: 96376 ×3; 96372 ×2; 96361 ×2; 96374; 96375; 99284; 36415; 80053 ×2; 83735; 85025 ×2; 80320; G0378 ×3; S4990; J2060 ×3; J1644 ×2; J2405

== ENCOUNTER 2024-01-23 07:07 | Emergency (ER) | payer OTHER ==
[2024-01-23 07:14] VITALS: RESP 18; TEMP 98
--- NOTE | 2024-01-23 07:20 | ED ---
General Adult HPI - General Chief complaint: Recheck/Abnormal Lab/Rx Stated complaint: [facility] - Drug Screen Time Seen by Provider: 01/23/24 07:18 Source: patient, RN notes reviewed Mode of arrival: ambulatory Limitations: no limitations - History of Present Illness Initial comments: 48-year-old male presents emergency department for drug screen. Patient works at [employer] and states he tries [employer] which he scraped against a pole. He had no injury himself. Patient was sent for drug screen. - Related Data Previous Rx's Medication Instructions Recorded Thiamine [Vitamin B-1] 100 mg PO DAILY #90 tablet 05/23/23 Allergies Allergy/AdvReac Type Severity Reaction Status Date / Time No Known Allergies Allergy Verified 01/23/24 07:13 Review of Systems ROS Statement: Those systems with pertinent positive or pertinent negative responses have been documented in the HPI. ROS Other: All systems not noted in ROS Statement are negative. Past Medical History Past Medical History: No Reported History Additional Past Medical History / Comment(s): alcoholism History of Any Multi-Drug Resistant Organisms: None Reported Additional Past Surgical History / Comment(s): CYST REMOVED FROM CHEST AREA, COLONOSCOPY Past Anesthesia/Blood Transfusion Reactions: No Reported Reaction Past Psychological History: No Psychological Hx Reported Smoking Status: Former smoker Past Alcohol Use History: Abuse, Daily, Heavy Past Drug Use History: Marijuana - Past Family History Mother Family Medical History: No Reported History General Exam Limitations: no limitations General appearance: alert, in no apparent distress Head exam: Present: atraumatic, normocephalic, normal inspection Respiratory exam: Present: normal lung sounds bilaterally. Absent: respiratory distress, wheezes, rales, rhonchi, stridor Cardiovascular Exam: Present: regular rate, normal rhythm, normal heart sounds. Absent: systolic murmur, diastolic murmur, rubs, gallop, clicks Course Vital Signs 01/23/24 07:12 Temperature 98 F Pulse Rate 93 Respiratory 18 Rate Blood Pressure 140/90 O2 Sat by Pulse 99 Oximetry Medical Decision Making - Medical Decision Making Was pt. sent in by a medical professional or institution (, PA, ONCOLOGY SOCIAL WORK, urgent care, hospital, or intermediate...) When possible be specific @ -Work Did you speak to anyone other than the patient for history (EMS, parent, family, police, friend...)? What history was obtained from this source @ -No Did you review nursing and triage notes (agree or disagree)? Why? @ -I reviewed and agree with nursing and triage notes Were old charts reviewed (outside hosp., previous admission, EMS record, old EKG, old radiological studies, urgent care reports/EKG's, intermediate records)? Report findings @ -No old charts were reviewed Differential Diagnosis (chest pain, altered mental status, abdominal pain women, abdominal pain men, vaginal bleeding, weakness, fever, dyspnea, syncope, headache, dizziness, GI bleed, back pain, seizure, CVA, palpatations, mental health, musculoskeletal)? @ -[Drug screen EKG interpreted by me (3pts min.). @None X-rays interpreted by me (1pt min.). @ -None done CT interpreted by me (1pt min.). @ -None done U/S interpreted by me (1pt. min.). @ -None done What testing was considered but not performed or refused? (CT, X-rays, U/S, labs)? Why? @ -None What meds were considered but not given or refused? Why? @ -None Did you discuss the management of the patient with other professionals (prof etta i.e. , PA, ONCOLOGY SOCIAL WORK, lab, RT, psych nurse, social media job titles, clinical tech, teacher, compliance officer, case packer and sealer)? Give summary @ -No Was smoking cessation discussed for >3mins.? @ -No Was critical care preformed (if so, how long)? @ -No Were there social determinants of health that impacted care today? How? (Homelessness, low income, unemployed, alcoholism, drug addiction, transportation, low edu. Level, literacy, decrease access to med. care, snf, rehab)? @ -No Was there de-escalation of care discussed even if they declined (Discuss DNR or withdrawal of care, Hospice)? DNR status @ -No What co-morbidities impacted this encounter? (DM, HTN, Smoking, COPD, CAD, Cancer, CVA, ARF, Chemo, Hep., AIDS, mental health diagnosis, sleep apnea, morbid obesity)? @ -None Was patient admitted / discharged? Hospital course, mention meds given and route, prescriptions, significant lab abnormalities, going to OR and other pertinent info. @ -Patient had no injury. Patient was here for at bedtime drug screen. Undiagnosed new problem with uncertain prognosis? @ -No Drug Therapy requiring intensive monitoring for toxicity (Heparin, Nitro, Insulin, Cardizem)? @ -No Were any procedures done? @ -No Diagnosis/symptom? @ -Drug screen Acute, or Chronic, or Acute on Chronic? @Acute Uncomplicated (without systemic symptoms) or Complicated (systemic symptoms)? @ -uncomplicated Side effects of treatment? @ -No Exacerbation, Progression, or Severe Exacerbation? @ -No Poses a threat to life or bodily function? How? (Chest pain, [place], ND, pneumonia, PE, COPD, DKA, ARF, appy, cholecystitis, CVA, Diverticulitis, Homicidal, Suicidal, threat to staff... and all critical care pts) @ -No Disposition Clinical Impression: Encounter for drug screening Disposition: HOME SELF-CARE Condition: Stable Additional Instructions: Please return to the Emergency Department if symptoms worsen or any other concerns. Is patient prescribed a controlled substance at d/c from ED?: No Referrals: None,Stated [Primary Care Provider] - 1-2 days Time of Disposition: 07:20
[2024-01-23 07:44] VITALS: BP 138/77; PULSE 90
== END 2024-01-23 08:51 | disposition home or self-care (01) ==
LOC: EC 07:07
DX: Z02.83 Encounter for blood-alcohol and blood-drug test (principal); Z87.891 Personal history of nicotine dependence
CPT/HCPCS: 99282

== ENCOUNTER → 2024-08-27 | Outpatient (CLI) | payer BC ==
--- NOTE | 2024-08-27 11:03 | FL ---
EXAMINATION TYPE: FL UGI w esophagus DATE OF EXAM: 08/27/2024 COMPARISON: None CLINICAL INDICATION: Male, 49 years old with history of K21.9 GASTRO-ESOPHAGEAL REFLUX DISEASE WI , R 13.10; PH[facility], episodes of vomiting. Noted some blood in the stool. Total fluoroscopy time 1 minute 54 seconds. Total images: 51 Total DAP: 150 mGycm2. FINDINGS: The swallowing mechanism is normal and hypopharyngeal anatomy is preserved. The cervical and thoracic portions have a normal course and caliber. Minimal tertiary peristaltic wav es are present in the distal third thoracic esophagus. The mucosa is normal and no persistent filling defect is encountered. Some of the last images during thin barium drinking suggests a tiny sliding hiatal hernia. We are shweta ble to elicit any gastroesophageal reflux during the course of the exam. The stomach shows normal distensibility, peristalsis, and mucosal folds. No evidence of any mass or ulcer disease. The duodenal bulb, sweep, and proximal small bowel loops are unremarkable. IMPRESSION: 1. Suggestion of a tiny sliding hiatal hernia. Although we were unable to reproduce any gastroesophag eal reflux during the course of the exam, this does not exclude its possibility. 2. No stricture or discrete mucosal abnormality. [facility], , 08/27/2024 11:00 AM
== END | disposition home or self-care (01) ==
LOC: RADFLMAIN 08:36
PROVIDERS: ATTEND Family Medicine
DX: K21.9 Gastro-esophageal reflux disease without esophagitis (principal); K30 Functional dyspepsia; K92.2 Gastrointestinal hemorrhage, unspecified; R13.10 Dysphagia, unspecified
CPT/HCPCS: 74240